=== PATIENT | male | born 1955 | race Caucasian/White ===

== ENCOUNTER 2024-03-06 04:59 | Emergency (ER) | payer OTHER, MEDICAID, SELFPAY ==
[2024-03-06 05:00] VITALS: BMI 30.8
[2024-03-06 05:06] VITALS: BP 162/84; PULSE 69; RESP 19; TEMP 35.9; O2SAT 98
--- NOTE | 2024-03-06 05:17 | PD.EDRME ---
Rapid Medical Screening Exam REPLACED BY [facility] Arrival date/time: 03/06/24 04:59 68M with history of HTN presents to ED with 2 weeks of worsening urinary retention and generalized weakness. Chief Complaint: Urogenital-Male Vital signs: Vital Signs Temperature 96.7 F L 03/06/24 05:06 Pulse Rate 69 03/06/24 05:06 Respiratory Rate 19 03/06/24 05:06 Blood Pressure 162/84 H 03/06/24 05:06 Pulse Oximetry (%) 98 03/06/24 05:06 Oxygen Delivery Method Room Air 03/06/24 05:06
[2024-03-06 06:21] LABS: Collection Type, Urine Catheter; Squamous Epithelial Cell,Urine 0 /hpf (0-5)
[2024-03-06 06:29] LABS: Basophils % (Auto) 0 % (0-2.5); Eosinophils # (Auto) 0.1 Thou/mm3 (0.0-0.5); Eosinophils % (Auto) 1 % (0-10); Hematocrit 42.9 % (41.0-53.0); Hemoglobin 14.7 g/dL (13.5-16.0); Immature Granulocytes % (Auto) 0 % (0-0); Immature Granulocytes Auto 0.02 Thou/mm3 (0.00-0.00); Lymphocytes % (Auto) 24 % (10-50); Mean Corpuscular HGB Conc 34.3 g/dl (31.0-37.0); Mean Corpuscular Hemoglobin 32.9 pg (25.0-35.0); Mean Corpuscular Volume 96 fL (80-100); Monocytes # (Auto) 0.7 Thou/mm3 (0.0-0.8); Monocytes % (Auto) 8 % (0-12); Neutrophils # (Auto) 5.6 Thou/mm3 (1.8-7.7); Neutrophils % (Auto) 67 % (37-80); Nucleated Red Blood Cell % 0 /100 WBC (0); Platelet Count 187 Thou/mm3 (140-440); RDW Standard Deviation 47.8 fL (35.1-43.9); Red Blood Count 4.47 Miln/mm3 (4.50-5.90); White Blood Count 8.4 Thou/mm3 (3.8-10.6)
[2024-03-06 06:46] LABS: Alanine Aminotransferase 38 U/L (10-49); Albumin, Serum 4.9 gm/dL (3.4-4.8); Albumin/Globulin Ratio 1.8 (1.2-2.2); Alkaline Phosphatase 80 U/L (46-116); Anion Gap 8 (7-16); Aspartate Amino Transferase 22 U/L (0-34); BUN/Creatinine Ratio 19 Ratio (12-20); Bilirubin,Total 0.8 mg/dL (0.3-1.2); Blood Urea Nitrogen 19 mg/dL (9-23); Calcium 10.4 mg/dL (8.3-10.6); Calcium (Corrected) 10.4 mg/dL (8.5-10.1); Chloride 100 mMol/L (98-107); Estimated Creatinine Clearance 85.1 mL/min (>60); Globulin 2.8 gm/dL (2.3-3.5); Glucose 128 mg/dL (74-106); Osmolality,Calculated 283 (275-295); Potassium 3.5 mMol/L (3.4-5.1); Sodium 140 mMol/L (136-145); Total Protein 7.7 gm/dL (5.7-8.2); eGFR > 60 See Note
[2024-03-06 07:18] LABS: Bilirubin,Urine Negative (Negative); Blood,Urine Trace (Negative); Clarity,Urine Clear (Clear/Hazy); Color,Urine Yellow (Lt Yel-Yel); Culture Indicated,Urine Not Indicated; Glucose, Urine Negative (Negative); Hyaline Casts,Urine < 1 /hpf (0-1); Ketones,Urine Trace (Negative); Leukocyte Esterase,Urine Negative (Negative); Nitrite,Urine Negative (Negative); Protein,Urine 1+ (Neg - Trace); RBC,Urine 4 /hpf (0-3); Specific Gravity,Urine 1.036 (1.001-1.035); WBC,Urine 5 /hpf (0-5)
--- NOTE | 2024-03-06 07:22 | PD.EDABDPN ---
ED Abdominal Pain RME/HPI General Chief Complaint: Urogenital-Male Stated complaint: ABD PAIN, CAN'T URINATE Time seen by provider: 03/06/24 06:45 Arrival date/time: 03/06/24 0600 This is a 68-year-old male who presents to the emergency department with complaints of a 2-week history of intermittent abdominal pain, constipation, and now with difficulty urinating. He reports he is able to pass urine however is less then his normal. Endorses decreased appetite associated with nausea however no emesis. was previously evaluated by his PCP on Thursday and x-ray was ordered abdominal has not followed up on results. He does report he is lost approximately 35 pounds in the last 6 months. Denies chest pain, dyspnea no fever, cough, shortness of breath, hematochezia, melena, focal weakness, or falls. Source: patient RME / HPI RME / HPI narrative: 03/06/24 04:59 68M with history of HTN presents to ED with 2 weeks of worsening urinary retention and generalized weakness. Related Data Home Medications ?Medication ?Instructions ?Recorded ?Confirmed lisinopril 20 mg tablet 20 mg PO QDAY 12/24/22 12/25/22 Allergies Allergy/AdvReac Type Severity Reaction Status Date / Time No Known Allergies Allergy Verified 12/25/22 11:26 Review of Systems Review of Systems Systems Reviewed: All systems reviewed, normal except as documented Narrative Review of Systems: see hpi ED Exam Narrative Physical exam: General: 68y M Sittiing in Exam table in no acute distress, answering questions appropriately HENT: normocephalic, atraumatic, EOMI, PERRLA, moist mucous membranes Chest: chest wall is nontender Cardiac: regular rate and rhythm, normal S1 and S2, no murmurs, rubs, or gallops, capillary refill ?2 seconds Pulmonary: clear to auscultation bilaterally, no wheezing, crackles, or rhonchi Abdominal: Abdomen is large habitus, left lower quadrant tenderness. Active bowel sounds, soft. Neuro: A&OX3, CN II-XII intact, sensation grossly intact bilaterally in UE and LE. Skin: no rashes, no ecchymosis Ext: no lower extremity edema Course Quality Measures none Orders Category Date Time Status CT Screening NOW Care 03/06/24 07:22 Completed [place] to Leg Bag Routine Care 03/06/24 05:[address] abdomen pelvis w con Stat Exams 03/06/24 07:21 Completed CBC Stat Lab 03/06/24 06:12 Completed CMP [Comprehensive Metabolic Panel] Stat Lab 03/06/24 06:12 Completed Lipase Stat Lab 03/06/24 06:12 Completed PSA [Prostate Specific Antigen] Stat Lab 03/06/24 06:12 Completed Urinalysis, C/S if Indicated Stat Lab 03/06/24 06:14 Completed Vital Signs Vital signs: Vital Signs Temperature 96.7 F L 03/06/24 05:06 Pulse Rate 69 03/06/24 05:06 Respiratory Rate 19 03/06/24 05:06 Blood Pressure 162/84 H 03/06/24 05:06 Pulse Oximetry (%) 98 03/06/24 05:06 Oxygen Delivery Method Room Air 03/06/24 05:06 Abdominal Pain MDM MDM Narrative MDM Narrative:: Mr Storm 68y M who presented to the emergency department this morning with complaints of intermittent anorexia, abdominal pain worsening over 1 month. Presented today with complaints of abdominal pain distention and difficulty urinating. Endorsed to me that he feels there is something abnormal in his abdomen, something is just not right . Due to his history of unintentional 35 pound weight loss, I did go ahead and ordered a CT abdomen pelvis with contrast. Patient's labs reviewed no leukocytosis no anemia. CMP reassuring, no elevation of the LFTs or T. bili. Patient CT did demonstrate a possible mass, or hypodense mass to the pancreas. During the ED stay patient is stable and alteration in vitals no significant pain. Patient is urinating fine. At this time I did explain to the patient all findings. I believe patient can follow-up on an outpatient basis. He states he will call tomorrow to make an appointment with his PCP he has an appointment on , however will try to get in by Thursday. Patient data External records reviewed:: [facility] previous records Clinical information provided by:: patient Social determinants that could affect healthcare access:: none Patient has the following chronic illnesses:: Hypertension How is presenting disease/condition affected by chronic disease/condition?: uneffected by Evaluation data The following diagnostics were reviewed and interpreted by me:: lab results and radiology exam(s) Lab and/or radiology exams considered but not ordered:: Yes consider ordered Interpretation Summary: Examination: CT abdomen with intravenous contrast CT pelvis with intravenous contrast 2-D coronal reconstructions 2-D sagittal reconstructions Date and time of exam:March 06, 2024 at 0907 hrs. Comparison: October 06, 2008 Indications: Bilateral flank pain difficulty urinating beginning 2 weeks ago. CTDI: vol (mGy) 11.2 DLP: (mGycm) 694 Technique: Multiple axial sections of the abdomen and pelvis have been obtained. 64 slice high-resolution scanner used. 3 mm axial sections have been obtained, post intravenous injection 60 cc [id number] 2-D sagittal, coronal reconstructions obtained. Low dose protocols were performed. One or more of the following dose reduction techniques were used; automated exposure control, adjustment of the mA and/or KV according to patient size, use of iterative reconstruction technique. Findings: Small low-density liver lesions Contracted gallbladder Spleen is not enlarged A hypodense mass with irregular margins head of the pancreas, measuring at least 5.8 x 6.2 cm No pancreatic mass No hydronephrosis No ureteral calculi Abdominal aortic calcification no aneurysmal dilatation No pericecal inflammatory change No bowel obstruction Detail in the pelvis is obscured by the hip arthroplasties Moderate osteopenia Impression: Large hypodense mass head of the pancreas with irregular margins, measuring at least 5.8 x 6.2 cm, highest on the differential list is pancreatic carcinoma Recommend MRI abdomen follow-up pre and postcontrast including MRCP Medications / Prescriptions Medications or Prescriptions considered but not ordered:: no Medication administrations:: no Consultations Consultation(s) initiated? (list below): No Diagnosis Differential diagnosis abdominal pain: abdominal pain, constipation, diverticulitis, gastroenteritis, pancreatitis and small bowel obstruction Most likely diagnosis given after review of the tests above:: Pancreatic Mass Admission Indicated Admission indicated?: not indicated Admission Request Was there a request for admission?: No Disposition Plan Disposition Plan: Discharge Discharge Attestation Discharge Attestation: The patient and all family members were given an opportunity to ask questions and understood the discharge instructions. Discharge instructions specifically effects, indications for sooner follow up or return to the emergency department, and the expected course of current diagnosis. Patient condition: Stable Discharge Plan Plan Patient Disposition: HOME (Self Care) Patient condition on transfer: Stable Prescriptions/Referrals Prescriptions/Med Rec: No Action lisinopril 20 mg tablet 20 mg PO QDAY Patient Comments: TAKE 1 TABLET BY MOUTH EVERY DAY [facility] [Primary Care Provider] - In 1 week Problem List Clinical Impression: Unintentional weight loss, Intermittent abdominal pain, Pancreatic mass Patient/Caregiver Discharge Instructions Discharge Activity: activity as tolerated Education Materials: Abdominal Pain Additional Instructions: - As discussed the findings of your CAT scan does does demonstrate you have a mass on your pancreas. It is very important that you make a follow-up appointment with your PCP or clinic this week for follow-up care. Will need extensive workup to follow. -As discussed please if you have any changes in condition, please return to the emergency department immediately. I did send some antiemetic medication to the pharmacy that might help with your nausea Print Language: Chinese Stand Alone Forms: Brenda Award Info., Patient Portal Info Letter Attestation Attestation The patient was seen by the midlevel practitioner. I, the co-signing physician, was present during the entire ER visit. While I did not physically examine the patient, I was available for consultation as needed.
[2024-03-06 07:43] LABS: Lipase 26 U/L (12-53)
[2024-03-06 07:45] LABS: Prostate Specific Antigen 0.75 ng/mL (0-4.00)
--- NOTE | 2024-03-06 07:57 | PC.NURSE ---
per herbert no catheter needed
== END 2024-03-06 11:22 | disposition home or self-care (01) ==
PROVIDERS: Nurse Practitioner Primary Care; Physician Assistant; Emergency Provider Emergency Medicine; PCP Nurse Practitioner Family
DX: K86.89 Other specified diseases of pancreas (principal); R63.4 Abnormal weight loss; Z68.30 Body mass index [BMI] 30.0-30.9, adult
CPT/HCPCS: 36415; 74177; 80053; 81001; 83690; 84153; 85025; 99285; A4649; Q9967

== ENCOUNTER 2024-03-18 06:07 | Emergency (ER) | payer OTHER, MEDICAID, SELFPAY ==
[2024-03-18 06:08] VITALS: BMI 24.3
[2024-03-18 06:20] VITALS: BP 146/86; PULSE 77; RESP 19; TEMP 36.4; O2SAT 100
--- NOTE | 2024-03-18 06:33 | PD.EDRME ---
Rapid Medical Screening Exam RME Arrival date/time: 03/18/24 06:07 Chief Complaint: Abdominal Pain Time Seen by Provider: 03/18/24 06:16 Vital signs: Vital Signs Temperature 97.6 F 03/18/24 06:20 Pulse Rate 77 03/18/24 06:20 Respiratory Rate 19 03/18/24 06:20 Blood Pressure 146/86 H 03/18/24 06:20 Pulse Oximetry (%) 100 03/18/24 06:20 Oxygen Delivery Method Room Air 03/18/24 06:20 Vital signs reviewed by provider: Yes RME Narrative: 68-year-old male with known intra-abdominal mass presents for diffuse abdominal pain x 1 month. Patient is currently being worked up for pancreatic mass seen on CT x 2 weeks ago but states he was unable to be scheduled with a specialist due to the holiday. Patient endorses abdominal distention and diffuse sharp pain. Patient notes increased urinary frequency and retention with mild abdominal distention. Patient endorses anorexia secondary to pain and nausea.
[2024-03-18 06:58] LABS: Collection Type, Urine Clean Catch; Squamous Epithelial Cell,Urine 0 /hpf (0-5)
[2024-03-18 07:20] LABS: Basophils % (Auto) 0 % (0-2.5); Eosinophils # (Auto) 0.1 Thou/mm3 (0.0-0.5); Eosinophils % (Auto) 1 % (0-10); Hemoglobin 15.6 g/dL (13.5-16.0); Immature Granulocytes % (Auto) 0 % (0-0); Immature Granulocytes Auto 0.03 Thou/mm3 (0.00-0.00); Lymphocytes # (Auto) 2.4 Thou/mm3 (1.0-4.8); Lymphocytes % (Auto) 26 % (10-50); Mean Corpuscular HGB Conc 35.5 g/dl (31.0-37.0); Mean Corpuscular Hemoglobin 32.8 pg (25.0-35.0); Mean Corpuscular Volume 92 fL (80-100); Monocytes # (Auto) 0.7 Thou/mm3 (0.0-0.8); Monocytes % (Auto) 8 % (0-12); Neutrophils # (Auto) 5.8 Thou/mm3 (1.8-7.7); Neutrophils % (Auto) 65 % (37-80); Nucleated Red Blood Cell % 0 /100 WBC (0); Platelet Count 182 Thou/mm3 (140-440); RDW Standard Deviation 45.7 fL (35.1-43.9); Red Blood Count 4.76 Miln/mm3 (4.50-5.90)
[2024-03-18] MEDS: MORPHINE SULF INJ 10 MG/ML VIAL 5 MG IM (07:35)
[2024-03-18] MEDS: ONDANSETRON ODT 4 MG TABRAP PO (07:35)
[2024-03-18 07:41] LABS: Alanine Aminotransferase 41 U/L (10-49); Albumin, Serum 4.7 gm/dL (3.4-4.8); Albumin/Globulin Ratio 1.6 (1.2-2.2); Alkaline Phosphatase 80 U/L (46-116); Anion Gap 10 (7-16); Aspartate Amino Transferase 25 U/L (0-34); BUN/Creatinine Ratio 22 Ratio (12-20); Bilirubin,Total 0.9 mg/dL (0.3-1.2); Blood Urea Nitrogen 22 mg/dL (9-23); Calcium 10.8 mg/dL (8.3-10.6); Calcium (Corrected) 10.8 mg/dL (8.5-10.1); Carbon Dioxide 29.3 mMol/L (20.0-31.0); Chloride 96 mMol/L (98-107); Glucose 132 mg/dL (74-106); Lipase 32 U/L (12-53); Osmolality,Calculated 275 (275-295); Potassium 2.8 mMol/L (3.4-5.1); Sodium 135 mMol/L (136-145); Total Protein 7.7 gm/dL (5.7-8.2); eGFR > 60 See Note
[2024-03-18 07:42] LABS: Amorphous Crystals,Urine Present (Absent); Amphetamine/Methamp Scrn,U Negative (Negative); Bacteria,Urine Rare; Barbiturate Screen,Urine Negative (Negative); Benzodiazepines Screen,Urine Negative (Negative); Benzoylecgonine Screen, Ur Negative (Negative); Bilirubin,Urine 1+ (Negative); Blood,Urine 1+ (Negative); Clarity,Urine Turbid (Clear/Hazy); Color,Urine Yellow (Lt Yel-Yel); Fentanyl Screen,Urine Negative (Negative); Glucose, Urine Negative (Negative); Hyaline Casts,Urine < 1 /hpf (0-1); Ketones,Urine 1+ (Negative); Leukocyte Esterase,Urine Positive (Negative); Nitrite,Urine Negative (Negative); Opiate Screen,Urine Positive (Negative); Protein,Urine 2+ (Neg - Trace); RBC,Urine 12 /hpf (0-3); Specific Gravity,Urine 1.041 (1.001-1.035); THC Screen,Urine Negative (Negative); WBC,Urine 5 /hpf (0-5)
--- NOTE | 2024-03-18 08:33 | PD.EDABDPN ---
ED Abdominal Pain RME/HPI General Chief Complaint: Abdominal Pain Stated complaint: ABD PAIN DUE TO HAVING MASS Time seen by provider: 03/18/24 06:16 Arrival date/time: 03/18/24 06:07 Limitations: no limitations RME / HPI RME / HPI narrative: 68-year-old male with known intra-abdominal mass presents for diffuse abdominal pain x 1 month. Patient is currently being worked up for pancreatic mass seen on CT x 2 weeks ago but states he was unable to be scheduled with a specialist due to the holiday. Patient endorses abdominal distention and diffuse sharp pain. Patient notes increased urinary frequency and retention with mild abdominal distention. Patient endorses anorexia secondary to pain and nausea. DR. LI MAIN ED EVALUATION: 68 year old male who was recently evaluated here 2 weeks ago and diagnosed with a pancreatic and liver mass and currently being worked up presents to the ED for complaint of abdominal pain and requesting pain medications today. States the pain remains unchanged from onset 1 month ago and described as sharp in sensation with abdominal distention. Accompanied by decreased appetite and nausea. Says he is planning to make a [address] [facility] for further evaluation/treatment today. Denies fevers, chills, chest pain, cough, shortness of breath, diarrhea, or urinary symptoms. Related Data Home Medications ?Medication ?Instructions ?Recorded ?Confirmed lisinopril 20 mg tablet 20 mg PO QDAY 12/24/22 12/25/22 Allergies Allergy/AdvReac Type Severity Reaction Status Date / Time No Known Allergies Allergy Verified 12/25/22 11:26 Review of Systems Review of Systems Systems Reviewed: All systems reviewed, normal except as documented Past Medical History Past Medical History CARDIAC: Positive Cardiac Disorders (htn) and Hypertension RESPIRATORY: Positive Asthma MUSCULOSKELETAL: Positive Musculoskeletal Disorders, Arthritis and Osteoporosis OTHER HISTORY: Positive Chicken Pox, Measles and Mumps Social History SMOKING STATUS: Never smoker ED Exam General Limitations: Present no limitations General appearance: Present alert and in distress (mild ) Head Head exam: Present atraumatic, normocephalic and normal inspection Eye Eye exam: Present normal appearance, PERRL and EOMI ENT ENT exam: Present normal exam, normal oropharynx and mucous membranes moist Neck Neck exam: Present normal inspection, full ROM and trachea midline Chest Chest inspection: Present normal inspection and symmetric chest wall rise Respiratory Respiratory exam: Present normal lung sounds bilaterally Cardiovascular Cardiovascular exam: Present regular rate, normal rhythm and normal heart sounds Abdominal Exam Abdominal exam: Present soft, distention and hyperactive bowel sounds Extremities Exam Extremities exam: Present normal inspection and full ROM Back Exam Back exam: Present normal inspection and full ROM Neurological Exam Neurological exam: Present alert, oriented X3 and CN II-XII intact Psychiatric Psychiatric exam: Present normal affect and normal mood Skin Skin exam: Present warm, dry, intact and normal color Course Quality Measures none Orders Category Date Time Status CBC Stat Lab 03/18/24 07:05 Completed CMP [Comprehensive Metabolic Panel] Stat Lab 03/18/24 07:05 Completed Drug Screen,Urine Stat Lab 03/18/24 06:47 Completed Lipase Stat Lab 03/18/24 07:05 Completed UA [Urinalysis] Stat Lab 03/18/24 06:47 Completed HYDROmorphone INJ [Dilaudid Inj] Med 03/18/24 08:30 Discontinued 2 mg IM X1 ONE Morphine Inj Med 03/18/24 06:32 Discontinued 5 mg IM X1 ONE Ondansetron Odt [Zofran Odt] Med 03/18/24 06:32 Discontinued 4 mg PO X1 ONE Reevaluation(s) Reevaluation #1: We reviewed all the results, analysis, and treatment plans. Patient is amenable to discharge. Strict return precautions were outlined. Patient was discharged in stable condition. Time: 08:30 Vital Signs Vital signs: Vital Signs Temperature 97.6 F 03/18/24 06:20 Pulse Rate 77 03/18/24 06:20 Respiratory Rate 19 03/18/24 06:20 Blood Pressure 146/86 H 03/18/24 06:20 Pulse Oximetry (%) 100 03/18/24 06:20 Oxygen Delivery Method Room Air 03/18/24 06:20 Pulse ox is 100% on room air which is adequate. Abdominal Pain MDM MDM Narrative MDM Narrative:: Carolyn Dye am scribing for and in the presence of Dr. Li. Patient data External records reviewed:: [facility] previous records (I reviewed ED visit on 03/06/2024 ) Clinical information provided by:: patient Social determinants that could affect healthcare access:: none Patient has the following chronic illnesses:: Hypertension Here 2 weeks ago and diagnosed with a pancreatic and liver mass How is presenting disease/condition affected by chronic disease/condition?: exacerbated by Evaluation data The following diagnostics were reviewed and interpreted by me:: lab results Lab and/or radiology exams considered but not ordered:: None Interpretation Summary: CBC unremarkable Medications / Prescriptions Medications or Prescriptions considered but not ordered:: None Medication administrations:: Medication Administration History Discontinued Medications Hydromorphone HCl (Hydromorphone Inj 2 Mg/Ml Vial) 2 mg IM X1 ONE Stop: 03/18/24 08:31 Last Admin: 03/18/24 08:42 Dose: 2 mg Documented By: DELMA Morphine Sulfate (Morphine Sulf Inj 10 Mg/Ml Vial) 5 mg IM X1 ONE Stop: 03/18/24 06:33 Last Admin: 03/18/24 07:35 Dose: 5 mg Documented By: DELMA Ondansetron HCl (Ondansetron Odt 4 Mg Tabrap) 4 mg PO X1 ONE; Protocol Stop: 03/18/24 06:33 Last Admin: 03/18/24 07:35 Dose: 4 mg Documented By: DELMA See above Consultations Consultation(s) initiated? (list below): No Diagnosis Differential diagnosis abdominal pain: abdominal pain and other (pancreatic mass, liver mass) Most likely diagnosis given after review of the tests above:: Abdominal pain Admission Indicated Admission indicated?: not indicated Admission Request Was there a request for admission?: No Disposition Plan Disposition Plan: Discharge Discharge Attestation Discharge Attestation: The patient and all family members were given an opportunity to ask questions and understood the discharge instructions. Discharge instructions specifically effects, indications for sooner follow up or return to the emergency department, and the expected course of current diagnosis. Patient condition: Stable Discharge Plan Plan Patient Disposition: HOME (Self Care) Patient condition on transfer: Stable Prescriptions/Referrals Prescriptions/Med Rec: No Action lisinopril 20 mg tablet 20 mg PO QDAY Patient Comments: TAKE 1 TABLET BY MOUTH EVERY DAY Referrals: Tete Gallardo MD [Primary Care Provider] - In 1 week Problem List Clinical Impression: Abdominal pain Patient/Caregiver Discharge Instructions Print Language: Chinese Stand Alone Forms: Brenda Award Info., Patient Portal Info Letter
[2024-03-18] MEDS: HYDROmorphone INJ 2 MG/ML VIAL IM (08:42)
== END 2024-03-18 08:49 | disposition home or self-care (01) ==
PROVIDERS: Physician Assistant; Emergency Provider Emergency Medicine; PCP Family Medicine
DX: R10.84 Generalized abdominal pain (principal)
CPT/HCPCS: 36415; 80053; 80307; 81001; 83690; 85025; 96372; 99284; J2270; J3490; Q0162

== ENCOUNTER 2024-03-30 19:45 | Inpatient (IN) | payer OTHER, MEDICAID, MEDICARE, SELFPAY ==
[2024-03-30 19:51] VITALS: PULSE 99; RESP 18; O2SAT 97; BMI 28.7
[2024-03-30 19:52] VITALS: BP 159/93; PULSE 89; RESP 19; TEMP 36.6; O2SAT 99; BMI 28.4
--- NOTE | 2024-03-30 19:53 | EKG_ITS ---
[facility] Test Date: 2024-03-30 Pat Name: HUSAM SANCHEZ Department: Room: - Gender: Male Vp Strategy: : 1955 Requested By: ED Temporary Provider Order Number: [id number] Reading MD: ED Temporary Provider Measurements Intervals [place] Rate: 86 P: 70 [place]: 143 QRS: 33 QRSD: 86 T: 60 QT: 374 QTc: 449 Interpretive Statements SINUS RHYTHM WITH SINUS ARRHYTHMIA POSSIBLE RIGHT VENTRICULAR CONDUCTION DELAY [RSR (QR) IN V1/V2] No previous ECG available for comparison /[id number]/[email or web address]/[id number].pdf
--- NOTE | 2024-03-30 19:59 | XR_ITS ---
Examination: AP chest single view Technique one AP portable semiupright chest single view Exam date and time: March 30, 2024 2042 hrs. Comparison: April 10, 2016 Indications: Onset chest pain today. Findings: Normal heart size Lungs are clear. The osseous structures are intact Impression: No active disease
--- NOTE | 2024-03-30 20:10 | EDNOTE_ITS ---
ED Chest Pain RME/HPI General Chief Complaint: Chest Pain Stated Complaint: CHEST PAIN Time Seen by Provider: 03/30/24 19:59 Arrival date/time: 03/30/24 19:45 RME / HPI RME / HPI narrative: DR. VELEZ MAIN ED EVALUATION: 68 year old male presents to the Emergency Department [facility] with complaints of chest pain and diffuse abdominal pain. Pain is described as aching and rated mild to moderate in severity. PMHx: Hypertension. Seen here on 03/06/24 and diagnosed with a pancreatic and liver mass. Social Hx: No tobacco, alcohol, or substance use. Related Data Previous Rx's ?Medication ?Instructions ?Recorded morphine 20 mg/5 mL (4 mg/mL) oral 10 mg (2.5 mL) PO Q4H PRN severe 04/04/24 solution pain #500 mL Allergies Allergy/AdvReac Type Severity Reaction Status Date / Time No Known Allergies Allergy Verified 12/25/22 11:26 Review of Systems Review of Systems Systems Reviewed: All systems reviewed, normal except as documented Past Medical History Past Medical History CARDIAC: Positive Cardiac Disorders and Hypertension RESPIRATORY: Positive Asthma MUSCULOSKELETAL: Positive Musculoskeletal Disorders, Arthritis and Osteoporosis OTHER HISTORY: Positive Chicken Pox, Measles and Mumps Social History SMOKING STATUS: Former smoker SUBSTANCE USE: does not use ALCOHOL: Never ED Exam Narrative Physical exam: GENERAL APPEARANCE: alert and oriented x 4, well-developed, well-nourished, no acute distress VITALS: All vitals were reviewed and the pulse ox is 99% on room air, which is normal according to my interpretation. HEENT: Normocephalic, atraumatic; pupils equal, round, reactive to light; EOMI; mucous membranes pink, moist; oropharynx clear NECK: Supple LUNGS: CTABL; no wheezes, no rales, no rhonchi HEART: Regular rate, regular rhythm; normal S1, S2; no murmurs ABDOMEN: non distended; normal BS; soft, no tenderness, no guarding, no rebound; no masses, no organomegaly, no hernia BACK: no CVA tenderness EXTREMITIES: atraumatic; no edema NEUROLOGIC: awake; alert and oriented x4; cranial nerves II-XII grossly intact; no focal sensory or motor deficits PSYCHIATRIC: appropriate mood and affect SKIN: warm, dry, normal color; no rashes Course Course Course Narrative: 2210: Spoke with the patient, who states he had a biopsy done on Thursday (03/25/24) at [facility] and was supposed to have the pathology results sent over to [facility]. Patient states he doesn't have an appointment with [facility] until 04/25/23 and has not been informed of the pathology results. His new oncologist, Dr. Bach, is currently on vacation. 0020: Patient states his pain has returned and woke him up from his sleep. He is requesting additional pain medications. Quality Measures none Orders Category Date Time Status Mine Safety Director NOW Care 03/30/24 19:59 Completed EKG (ED ONLY) *Do not use* NOW Care 03/30/24 19:53 Completed EKG (ED Only) Stat Exams 03/30/24 19:53 Draft XR chest 1V portable Stat Exams 03/30/24 19:59 Completed B-Type Natriuretic Peptide Stat Lab 03/30/24 20:06 Completed CBC Stat Lab 03/30/24 20:06 Completed Comprehensive Metabolic Panel Stat Lab 03/30/24 20:06 Completed Lipase Stat Lab 03/30/24 20:06 Completed Magnesium Stat Lab 03/30/24 20:06 Completed Partial Thromboplastin Time Stat Lab 03/30/24 20:06 Completed Prothrombin Time with INR Stat Lab 03/30/24 20:06 Completed Troponin I Stat Lab 03/30/24 20:06 Completed Urinalysis, C/S if Indicated Stat Lab 03/30/24 21:50 Completed HYDROmorphone INJ [Dilaudid Inj] Med 03/30/24 21:50 Discontinued 1 mg IVP X1 ONE HYDROmorphone INJ [Dilaudid Inj] Med 03/31/24 00:24 Discontinued 1 mg IVP X1 ONE Morphine Inj Med 03/30/24 20:22 Discontinued 5 mg IVP X1 ONE Ondansetron Inj [Zofran Inj] Med 03/30/24 20:22 Discontinued 4 mg IV X1 ONE Ondansetron Inj [Zofran Inj] Med 03/31/24 00:24 Discontinued 4 mg IV X1 ONE Sodium Chloride 0.9% 1000 ml [Ns] 1,000 ml Med 03/30/24 20:22 Discontinued IV 999 mls/hr Sodium Chloride 0.9% 1000 ml [Ns] 1,000 ml Med 03/30/24 20:22 Discontinued IV 999 mls/hr Vital Signs Vital signs: Vital Signs Temperature 97.8 F 03/30/24 19:52 Pulse Rate 89 03/30/24 19:52 Respiratory Rate 19 03/30/24 19:52 Blood Pressure 159/93 H 03/30/24 19:52 Pulse Oximetry (%) 99 03/30/24 19:52 Oxygen Delivery Method Room Air 03/30/24 19:52 Chest Pain MDM Narrative MDM Narrative:: I, Marlene Prado, dulce scribing for and in the presence of Dr. Velez. Patient data External records reviewed:: [facility] previous records (Reviewed last ED visit dated 03/18/24, discharged with the following: abdominal pain.) and EMS form Clinical information provided by:: patient and EMS Social determinants that could affect healthcare access:: none Patient has the following chronic illnesses:: Hypertension. Seen here on 03/06/24 and diagnosed with a pancreatic and liver mass. How is presenting disease/condition affected by chronic disease/condition?: exacerbated by Evaluation data The following diagnostics were reviewed and interpreted by me:: lab results, radiology exam(s) and EKG tracing(s) Lab and/or radiology exams considered but not ordered:: none Interpretation Summary: Procedure(s): XR chest 1V portable Accession Number(s): [id number] cc: Ronal Arguello MD; Ifrah Velez MD; Tete Gallardo MD~ Examination: AP chest single view Technique one AP portable semiupright chest single view Exam date and time: March 30, 2024 2042 hrs. Comparison: April 10, 2016 Indications: Onset chest pain today. Findings: Normal heart size Lungs are clear. The osseous structures are intact Impression: No active disease Dictated By: Ronal Arguello MD --------- EKG done at 2003, NSR, rate of 86, mild baseline wander, mild artifact, no acute ischemia, according to my interpretation. Medications / Prescriptions Medications or Prescriptions considered but not ordered:: none Medication administrations:: Medication Administration History Discontinued Medications Bisacodyl (Bisacodyl 10 Mg Supp) 10 mg RI QDAY PRN; Protocol PRN Reason: CONSTIPATION Stop: 04/30/24 14:14 Dronabinol (Dronabinol 2.5 Mg Capsule) 2.5 mg PO BIDAC NIKKO Stop: 04/30/24 16:59 Last Admin: 04/01/24 07:46 Dose: 2.5 mg Documented By: Admin: 03/31/24 17:47 Dose: 2.5 mg Documented By: TD Enoxaparin Sodium (Enoxaparin Sod Inj 40 Mg/0.4 Ml Syringe) 40 mg SC QDAY NIKKO Stop: 04/14/24 08:59 Last Admin: 04/01/24 08:37 Dose: 40 mg Documented By: Admin: 03/31/24 09:08 Dose: 40 mg Documented By: LIAT Glycerin (Glycerin, Adult 1 Ea Supp) 1 each RI QDAY PRN; Protocol PRN Reason: CONSTIPATION Stop: 04/30/24 14:09 Hydromorphone HCl (Hydromorphone Inj 2 Mg/Ml Vial) 1 mg IVP X1 ONE Stop: 03/30/24 21:51 Last Admin: 03/30/24 21:54 Dose: 1 mg Documented By: JLUIS Hydromorphone HCl (Hydromorphone Inj 2 Mg/Ml Vial) 1 mg IVP X1 ONE Stop: 03/31/24 00:25 Last Admin: 03/31/24 00:45 Dose: 1 mg Documented By: JLUIS Hydromorphone HCl (Hydromorphone Inj 2 Mg/Ml Vial) 1 mg IVP Q2H PRN PRN Reason: PAIN Stop: 04/05/24 00:43 Last Admin: 03/31/24 10:55 Dose: 1 mg Documented By: Admin: 03/31/24 08:51 Dose: 1 mg Documented By: Admin: 03/31/24 06:39 Dose: 1 mg Documented By: Admin: 03/31/24 03:47 Dose: 1 mg Documented By: JLUIS Comments: MEDICATION GIVEN VERIFIED WITH CHARGE NURSE LALA GAFFNEY. Hydromorphone HCl (Hydromorphone Inj 2 Mg/Ml Vial) 2 mg IVP Q2H PRN PRN Reason: PAIN Stop: 04/05/24 00:43 Sodium Chloride (Ns) 1,000 mls @ 999 mls/hr IV .Q1H1M ONE Stop: 03/30/24 21:22 Last Infusion: 03/30/24 21:46 Dose: Infused Documented By: Admin: 03/30/24 20:37 Dose: 999 mls/hr Documented By: JLUIS Sodium Chloride (Ns) 1,000 mls @ 999 mls/hr IV .Q1H1M ONE Stop: 03/30/24 21:22 Last Infusion: 03/30/24 21:46 Dose: Infused Documented By: Admin: 03/30/24 20:37 Dose: 999 mls/hr Documented By: JLUIS Sodium Chloride (Ns) 1,000 mls @ 100 mls/hr IV .Q10H ONE Stop: 03/31/24 10:44 Last Admin: 03/31/24 01:10 Dose: 100 mls/hr Documented By: JLUIS Lisinopril (Lisinopril 20 Mg Tablet) 20 mg PO QDAY [facility] Stop: 04/30/24 08:59 Last Admin: 04/01/24 08:37 Dose: 20 mg Documented By: Admin: 03/31/24 09:07 Dose: 20 mg Documented By: TD Magnesium Hydroxide (Milk Of Magnesia Susp 30 Ml Udc) 30 ml PO Q12HR PRN; Protocol PRN Reason: CONSTIPATION Stop: 04/30/24 14:09 Morphine Sulfate (Morphine Sulf Inj 10 Mg/Ml Vial) 5 mg IVP X1 ONE Stop: 03/30/24 20:23 Last Admin: 03/30/24 20:36 Dose: 5 mg Documented By: JLUIS Morphine Sulfate (Morphine Sulf 30 Mg Tabcr) 30 mg PO Q12HR NIKKO Stop: 04/04/24 21:01 Last Admin: 04/01/24 08:37 Dose: 30 mg Documented By: Admin: 03/31/24 21:19 Dose: 30 mg Documented By: Admin: 03/31/24 14:30 Dose: 30 mg Documented By: TD Morphine Sulfate (Morphine Sulf Liqd 10 Mg/5 Ml Udc) 10 mg PO Q4H PRN PRN Reason: PAIN Stop: 04/05/24 14:00 Last Admin: 04/01/24 09:36 Dose: 10 mg Documented By: LÓPEZ Naloxegol (Naloxegol Oxalate 25 Mg Tablet (Non-Formulary)) 12.5 mg PO QDAY NIKKO Stop: 04/30/24 08:59 Last Admin: 03/31/24 10:48 Dose: 12.5 mg Documented By: LIAT Naloxegol (Naloxegol Oxalate 25 Mg Tablet (Non-Formulary)) 25 mg PO ACBR [facility] Stop: 05/01/24 05:59 Last Admin: 04/01/24 06:10 Dose: Not Given Documented By: YURI Non-Admin Reason: Patient Refused Ondansetron HCl (Ondansetron Inj 2 Mg/Ml Inj 2 Ml) 4 mg IV X1 ONE Stop: 03/30/24 20:23 Last Admin: 03/30/24 20:36 Dose: 4 mg Documented By: JLUIS Ondansetron HCl (Ondansetron Inj 2 Mg/Ml Inj 2 Ml) 4 mg IV X1 ONE Stop: 03/31/24 00:25 Last Admin: 03/31/24 00:45 Dose: 4 mg Documented By: JLUIS see above Consultations Consultation(s) initiated? (list below): Yes Consultation #1 (Physician, Specialty, Details): Discussed case with [Dr. Smith] from Hospitalist service regarding admission. Discussed patients ED course, exam findings, labs, and radiology results. The Hospitalist will evaluate the patient. Time: 00:25 Consultation #2 (Physician, Specialty, Details): Dr. Smith accepts the patient for admission. Time: 00:43 Diagnosis Chest Pain Differential Diagnosis: atypical chest pain, costochondritis, chest pain, biliary colic and other (pancreatic mass, liver mass) Most likely diagnosis given after review of the tests above:: see below Admission Indicated Admission indicated?: indicated Admission Request Was there a request for admission?: Yes Admission Attestation Admission request attestation: Discussed case with [] from Hospitalist service regarding admission. Discussed patients ED course, exam findings, labs, and radiology results. The Hospitalist [agrees,declines] to accept the patient for admission. Disposition Plan Disposition Plan: Admit Discharge Plan Plan Patient Disposition: Admit Acute Care w/in Hospital Patient condition on transfer: Stable Problem List Clinical Impression: Pancreatic mass, Abdominal pain Patient/Caregiver Discharge Instructions Discharge Activity: activity as tolerated Other Activity Instructions:: [facility] , , at 9:30a.m. with Dr. Lopez [phone] Diet Instructions: Regular diet
[2024-03-30 20:27] LABS: Basophils % (Auto) 0 % (0-2.5); Eosinophils # (Auto) 0.1 Thou/mm3 (0.0-0.5); Eosinophils % (Auto) 1 % (0-10); Hematocrit 37.8 % (41.0-53.0); Hemoglobin 13.2 g/dL (13.5-16.0); Immature Granulocytes % (Auto) 1 % (0-0); Immature Granulocytes Auto 0.13 Thou/mm3 (0.00-0.00); Lymphocytes # (Auto) 1.3 Thou/mm3 (1.0-4.8); Lymphocytes % (Auto) 11 % (10-50); Mean Corpuscular HGB Conc 34.9 g/dl (31.0-37.0); Mean Corpuscular Hemoglobin 32.3 pg (25.0-35.0); Mean Corpuscular Volume 92 fL (80-100); Monocytes # (Auto) 1.2 Thou/mm3 (0.0-0.8); Monocytes % (Auto) 9 % (0-12); Neutrophils # (Auto) 9.7 Thou/mm3 (1.8-7.7); Neutrophils % (Auto) 78 % (37-80); Nucleated Red Blood Cell % 0 /100 WBC (0); Platelet Count 173 Thou/mm3 (140-440); RDW Standard Deviation 45.1 fL (35.1-43.9); Red Blood Count 4.09 Miln/mm3 (4.50-5.90); White Blood Count 12.4 Thou/mm3 (3.8-10.6)
[2024-03-30] MEDS: MORPHINE SULF INJ 10 MG/ML VIAL 5 MG IVP (20:36)
[2024-03-30] MEDS: ONDANSETRON INJ 2 MG/ML INJ 2 ML 4 MG IV (20:36)
[2024-03-30] MEDS: SODIUM CHLORIDE 0.9% 1000 ML 1,000 ML 999 ML IV ×2 (20:37)
[2024-03-30 20:42] LABS: INR 1.3 (0.9-1.3); Partial Thromboplastin Time 29.3 Seconds (22.0-36.0); Prothrombin Time 13.7 Seconds (9.0-12.2)
[2024-03-30 21:00] LABS: Alanine Aminotransferase 71 U/L (10-49); Albumin, Serum 4.1 gm/dL (3.4-4.8); Albumin/Globulin Ratio 1.5 (1.2-2.2); Alkaline Phosphatase 100 U/L (46-116); Anion Gap 16 (7-16); Aspartate Amino Transferase 43 U/L (0-34); BUN/Creatinine Ratio 19 Ratio (12-20); Blood Urea Nitrogen 13 mg/dL (9-23); Calcium 10.1 mg/dL (8.3-10.6); Calcium (Corrected) 10.1 mg/dL (8.5-10.1); Chloride 93 mMol/L (98-107); Creatinine (Component) 0.7 mg/dL (0.6-1.3); Estimated Creatinine Clearance 117.1 mL/min (>60); Globulin 2.8 gm/dL (2.3-3.5); Glucose 126 mg/dL (74-106); Lipase 21 U/L (12-53); Magnesium 1.9 mg/dL (1.6-2.6); Osmolality,Calculated 262 (275-295); Potassium 3.5 mMol/L (3.4-5.1); Sodium 130 mMol/L (136-145); Total Protein 6.9 gm/dL (5.7-8.2); Troponin I < 0.020 ng/mL (0.0-0.045); eGFR > 60 See Note
[2024-03-30 21:03] LABS: B-Type Natriuretic Peptide 28 pg/mL (0-100)
[2024-03-30] MEDS: HYDROmorphone INJ 2 MG/ML VIAL 1 MG IVP (21:54)
[2024-03-30 21:55] VITALS: BP 132/73; PULSE 78; PULSE 80; RESP 18; O2SAT 97
[2024-03-30 21:55] LABS: Collection Type, Urine Clean Catch; Squamous Epithelial Cell,Urine 0 /hpf (0-5); WBC,Urine 0 /hpf (0-5)
[2024-03-30 22:06] LABS: Bacteria,Urine Rare; Bilirubin,Urine Negative (Negative); Blood,Urine Trace (Negative); Clarity,Urine Turbid (Clear/Hazy); Color,Urine Yellow (Lt Yel-Yel); Culture Indicated,Urine Not Indicated; Glucose, Urine Negative (Negative); Ketones,Urine 2+ (Negative); Leukocyte Esterase,Urine Negative (Negative); Nitrite,Urine Negative (Negative); PH,Urine 6.5 (5.0-7.0); Protein,Urine Trace (Neg - Trace); RBC,Urine 5 /hpf (0-3); Specific Gravity,Urine 1.011 (1.001-1.035)
[2024-03-31] VITALS (9 sets, daily range): BP systolic 112–157; BP diastolic 68–91; PULSE 66–105; RESP 15–20; TEMP 36.1–37.6; O2SAT 92–100; BMI 28.1
[2024-03-31] MEDS: HYDROmorphone INJ 2 MG/ML VIAL 1 MG IVP ×5 (00:45→10:55)
[2024-03-31] MEDS: ONDANSETRON INJ 2 MG/ML INJ 2 ML 4 MG IV (00:45)
--- NOTE | 2024-03-31 00:48 | PD.EVENT ---
Documentation for date of: 03/31/24 Event Note Event Note: The patient is a 68-year-old male presenting with severe, diffuse abdominal pain radiating to the lower back, associated with chest discomfort. The abdominal pain, described as aching and persistent, began in January and progressively worsened, leading to multiple evaluations, including a stomach X-ray and CT imaging at outside facilities. On 03/06/24, CT imaging revealed a large hypodense mass in the head of the pancreas with irregular margins, measuring 5.8 x 6.2 cm, suspicious for pancreatic carcinoma. A biopsy was performed on last Thursday at [facility], and the patient awaits pathology results. He reports significant weight loss, absence of appetite for the past month, weakness, dizziness, and minimal vomiting, but denies fever, cough, or diarrhea. He also reports severe constipation requiring enema use. Despite [place] 5/325 every six hours, the pain remains uncontrolled, with a current intensity of 10/10. Prior trials of morphine provided partial relief lasting about four hours. The patient denies any recent surgical history, diabetes, or heart conditions but has a history of hypertension. He quit smoking and drinking several years ago. In the Emergency Department, his vital signs showed a temperature of 97.8?F, blood pressure of 159/93 mmHg, respiratory rate of 19, and oxygen saturation within normal limits. Laboratory workup revealed elevated WBC at 12.4, mild hyponatremia (Na 130), and hypochloremia (Cl 93). Chest X-ray showed no active disease, and physical examination confirmed abdominal tenderness, particularly in the epigastric region, and diffuse pain radiating to the back. Despite administration of morphine and hydromorphone, there was no significant improvement in pain. Patient is going to be admitted for pain management.
[2024-03-31] MEDS: SODIUM CHLORIDE 0.9% 1000 ML 1,000 ML 100 ML IV (01:10)
--- NOTE | 2024-03-31 01:21 | PD.RESHP ---
Documentation for date of: 03/31/24 [facility] History of Present Illness History of present illness: The patient is a 68-year-old male with a past medical history of hypertension and recently diagnosec pancreatic adenocarcinoma who presents to the ED on 03/31/2024 with complaints of chest and abdominal pain of about two month duration. The patient reports that his symptoms started in January with abdominal pain initially located in the epigastric region and progressed to be diffuse and radiating to the back, associated with chest discomfort. Severity is 10/10 patient presented on 03/06/2024 CT imaging was done which showed a large hypodense mass in the head of the pancreas with irregular margins, suspicion for pancreatic carcinoma. Patient had a biopsy done about a week ago at [facility], pathology report were supposed to be sent to his PCP but seems to have been lost in transit. He also endorses loss of appetite about 2 episodes of vomiting, weight loss and weakness but denies diarrhea, fever or cough. The patient was started on [place] to be used every 6 hours, and has had constipation from opioid use, last bowel movement was about a month ago until yesterday when he had an enema, however pain remains uncontrolled. Per patient, he quit smoking and drinking and has not had a smoke or drink in many years. ED course: In the ED, patient was afebrile, hypertensive with a blood pressure 159/93 and saturating 98% on room air. Labs showed WBC of 12.4 Hgb 13.2 PLT 173 NA 130 K3.5 CL 93 bicarb 21 BUN 13 creatinine 0.7 glucose 126 slightly elevated AST and ALT. UA showed 2+ ketones but otherwise unremarkable. Chest x-ray was done and showed no active disease. Patient was given Zofran, IV morphine, 2 L of IV fluid and 2 mg of Dilaudid and is being admitted for management of intractable pain. Review of Systems Review of Systems Narrative Review of Systems: GENERAL: Denies fevers/chills or diaphoresis. HEENT: Denies headache or visual/hearing changes. Denies nasal discharge. NEURO: Admits weakness, denies difficulty speaking. CARDIO: Admits chest pain, denies palpitations PULM: Denies SOB, coughing, or wheezing. GI: Admits abdominal pain, nausea and vomiting, constipation URO: Denies burning/itching/pain/urinary changes. MSK/EXT/SKIN: Denies joint/skeletal/muscle pain, issues/changes in upper or lower extremities, itchiness, or superficial pain. PSYCH: Cooperative, pleasant mood & affect. Exam Vital Signs Temp Pulse Resp BP Pulse Ox O2 Del Method 98.5 F 66 18 153/88 H 97 Room Air 03/31/24 00:36 03/31/24 00:36 03/31/24 00:36 03/31/24 00:36 03/31/24 00:36 03/31/24 00:36 Narrative Exam GENERAL: AAOX3. NEURO: SCOREBOARD OPERATOR grossly intact, moves extremities x4. HEENT: Moist mucosa. Eyes open, symmetrical, & clear. CARDIO: No chest pain on palpation. Heart RRR, no obvious murmurs. PULM: No noted coughing/dyspnea. Lungs CTA B/L. GI: Abdomen soft, nondistended, tender to palpation diffusely, worse in the epigastrium. URO/SOLE CONFORMING MACHINE OPERATOR:: No further abnormalities noted. SKIN/MSK/EXT: No wounds/rashes/edema/amputations, no pain on palpation. Pedal pulses present B/L. Results: Labs 03/30/24 20:06 03/30/24 20:06 Labs: Short CBC 03/30/24 Range/Units 20:06 WBC 12.4 H (3.8-10.6) Thou/mm3 Hgb 13.2 L (13.5-16.0) g/dL Hct 37.8 L (41.0-53.0) % Plt Count 173 (140-440) Thou/mm3 [facility] 03/30/24 20:06 Sodium 130 L Potassium 3.5 Chloride 93 L Carbon Dioxide 21.0 BUN 13 Creatinine 0.7 Glucose 126 H Calcium 10.1 Cardiac Enzymes 03/30/24 Range/Units 20:06 Troponin I < 0.020 (0.0-0.045) ng/mL Liver Function 03/30/24 Range/Units 20:06 Total Bilirubin 1.0 (0.3-1.2) mg/dL AST 43 H (0-34) U/L ALT 71 H (10-49) U/L Alkaline Phosphatase 100 (46-116) U/L Albumin 4.1 (3.4-4.8) gm/dL Urine 03/30/24 Range/Units 21:50 Urine Color Yellow (Lt Yel-Yel) Urine Clarity Turbid A (Clear/Hazy) Urine pH 6.5 (5.0-7.0) Ur Specific [place] 1.011 (1.001-1.035) Urine Protein Trace (Neg - Trace) Urine Glucose (UA) Negative (Negative) Quality Measures Quality Measures none Advance care planning discussed with:: patient Medications Home Medications and Allergies Home Medications ?Medication ?Instructions ?Recorded ?Confirmed ?Type lisinopril 20 mg tablet 20 mg PO QDAY 12/24/22 12/25/22 History Allergies Allergy/AdvReac Type Severity Reaction Status Date / Time No Known Allergies Allergy Verified 12/25/22 11:26 Visit Medications Enoxaparin Sodium (Enoxaparin Sod Inj 40 Mg/0.4 Ml Syringe) 40 mg SC QDAY NIKKO Stop: 04/14/24 08:59 Hydromorphone HCl (Hydromorphone Inj 2 Mg/Ml Vial) 1 mg IVP Q2H PRN PRN Reason: PAIN Stop: 04/05/24 00:43 Sodium Chloride (Ns) 1,000 mls @ 100 mls/hr IV .Q10H ONE Stop: 03/31/24 10:44 Last Admin: 03/31/24 01:10 Dose: 100 mls/hr Discontinued Medications Hydromorphone HCl (Hydromorphone Inj 2 Mg/Ml Vial) 1 mg IVP X1 ONE Stop: 03/30/24 21:51 Last Admin: 03/30/24 21:54 Dose: 1 mg Hydromorphone HCl (Hydromorphone Inj 2 Mg/Ml Vial) 1 mg IVP X1 ONE Stop: 03/31/24 00:25 Last Admin: 03/31/24 00:45 Dose: 1 mg Sodium Chloride (Ns) 1,000 mls @ 999 mls/hr IV .Q1H1M ONE Stop: 03/30/24 21:22 Last Infusion: 03/30/24 21:46 Dose: Infused Sodium Chloride (Ns) 1,000 mls @ 999 mls/hr IV .Q1H1M ONE Stop: 03/30/24 21:22 Last Infusion: 03/30/24 21:46 Dose: Infused Morphine Sulfate (Morphine Sulf Inj 10 Mg/Ml Vial) 5 mg IVP X1 ONE Stop: 03/30/24 20:23 Last Admin: 03/30/24 20:36 Dose: 5 mg Ondansetron HCl (Ondansetron Inj 2 Mg/Ml Inj 2 Ml) 4 mg IV X1 ONE Stop: 03/30/24 20:23 Last Admin: 03/30/24 20:36 Dose: 4 mg Ondansetron HCl (Ondansetron Inj 2 Mg/Ml Inj 2 Ml) 4 mg IV X1 ONE Stop: 03/31/24 00:25 Last Admin: 03/31/24 00:45 Dose: 4 mg Assessment & Plan Assessment Summary: The patient is a 68-year-old male with a past medical history of hypertension and recently diagnosed pancreatic adenocarcinoma who presents to the ED on 03/31/2024 with complaints of chest and abdominal pain of about 2-month duration. He had a biopsy done about a week ago at [facility], pathology report in the chart #Pancreatic adenocarcinoma with liver metastasis #Intractable pain Patient presents with a 2-month history of chest and diffuse abdominal pain, worse in the epigastric region, radiating to the back, 10/10 in severity. He presented to the ED on 03/06/[address] imaging was done which showed a large hypodense mass in the head of the pancreas with irregular margins, with a suspicion for pancreatic carcinoma. He had a biopsy done about a week ago at [facility], retrieved pathology reports- showed pancreatic adenocarcinoma He has been on [place] 5 mg every 6 hours, but pain remains uncontrolled. Additionally, he has had constipation and last bowel movement until yesterday was about a month ago. Plan: -Admit to MedSurg -Pain management with IV Dilaudid -Nausea management with Zofran -Oncology consulted, appreciate recommendations #History of hypertension The patient has a history of hypertension and is on lisinopril 20 mg daily, recently prescribed, however he states he has not been taking medications. Blood pressure on admission elevated. Plan: -Start lisinopril 20 mg daily Health maintenance: Dispo: MedSurg Diet: Cardiac DVT: Lovenox PT: Not ordered Code: Full Case was discussed with attending physician, Dr Luis Higgins MD PGY-1 Attending Provider Attestation/Addendum Pt was evaluated and plan formulated together with the housestaff team. I have reviewed the residents note above and agree with most of its content. Please refer to the residents note for additional details.
[2024-03-31 04:55] LABS: Basophils % (Auto) 0 % (0-2.5); Eosinophils % (Auto) 0 % (0-10); Hematocrit 38.1 % (41.0-53.0); Hemoglobin 13.2 g/dL (13.5-16.0); Immature Granulocytes % (Auto) 1 % (0-0); Immature Granulocytes Auto 0.08 Thou/mm3 (0.00-0.00); Lymphocytes # (Auto) 0.8 Thou/mm3 (1.0-4.8); Lymphocytes % (Auto) 9 % (10-50); Mean Corpuscular HGB Conc 34.6 g/dl (31.0-37.0); Mean Corpuscular Hemoglobin 32.6 pg (25.0-35.0); Mean Corpuscular Volume 94 fL (80-100); Monocytes # (Auto) 0.3 Thou/mm3 (0.0-0.8); Monocytes % (Auto) 3 % (0-12); Neutrophils # (Auto) 8.3 Thou/mm3 (1.8-7.7); Neutrophils % (Auto) 87 % (37-80); Nucleated Red Blood Cell % 0 /100 WBC (0); Platelet Count 136 Thou/mm3 (140-440); Red Blood Count 4.05 Miln/mm3 (4.50-5.90); White Blood Count 9.5 Thou/mm3 (3.8-10.6)
[2024-03-31 05:06] LABS: Anion Gap 11 (7-16); BUN/Creatinine Ratio 18 Ratio (12-20); Blood Urea Nitrogen 11 mg/dL (9-23); Calcium 8.8 mg/dL (8.3-10.6); Carbon Dioxide 24.2 mMol/L (20.0-31.0); Chloride 99 mMol/L (98-107); Creatinine (Component) 0.6 mg/dL (0.6-1.3); Estimated Creatinine Clearance 136.6 mL/min (>60); Glucose 109 mg/dL (74-106); Osmolality,Calculated 268 (275-295); Potassium 3.4 mMol/L (3.4-5.1); Sodium 134 mMol/L (136-145); eGFR > 60 See Note
--- NOTE | 2024-03-31 08:08 | PD.ONCCONS ---
HPI Data of Consult Consult date: 03/31/24 Requesting Physician: Luis Antonio Smith MD Primary Care Provider: Tete Gallardo MD Consult Narrative Reason for consult: Pancreatic cancer with abdominal pain History of present illness: Patient is 68-year-old gentleman with abdominal pelvic pain had CT abdomen pelvis 03/06/2024 revealing a large hypodense mass head of the pancreas irregular margins measuring at least 5.8 x 6.2 cm with the likelihood of pancreatic carcinoma. There are also small low-density liver lesions. Patient was evaluated [facility] last week with multiple imaging studies and a biopsy of the pancreatic head reportedly revealing adenocarcinoma. Imaging studies reportedly revealed liver mets. The records are not immediately available to me now. Patient came into the hospital with complaints of severe abdominal pain radiating to the back needing parenteral opioids to achieve comfort. Labs on admission 12.4 WBC hemoglobin 13.2 platelets 173. AST ALT mildly elevated. Bilirubin was 1.0. Patient now referred for oncological consultation. cc:: cc: Luis Antonio Smith MD Past Medical History Family History OTHER FAMILY HX: No family history of cancer Social History SOCIAL: Patient has been disabled for 30 years due to work related injury. Denies smoking drinking is a no kids lives alone Past Medical History Comments PMH COMMENT: Hypertension arthritis osteoporosis Meds Home Medications and Allergies Home Medications ?Medication ?Instructions ?Recorded ?Confirmed ?Type lisinopril 20 mg tablet 20 mg PO QDAY 12/24/22 12/25/22 History Allergies Allergy/AdvReac Type Severity Reaction Status Date / Time No Known Allergies Allergy Verified 12/25/22 11:26 Exam Vital Signs Temp Pulse Resp BP Pulse Ox O2 Del Method O2 Flow Rate 98.2 F 93 20 133/82 H 95 Room Air 2 03/31/24 06:33 03/31/24 06:33 03/31/24 06:33 03/31/24 06:33 03/31/24 06:33 03/31/24 06:33 03/31/24 03:52 Narrative Exam Lying comfortably now answering questions appropriately. Results Labs 03/31/24 04:25 03/31/24 04:25 Labs: Short CBC 03/30/24 03/31/24 Range/Units 20:06 04:25 WBC 12.4 H 9.5 (3.8-10.6) Thou/mm3 Hgb 13.2 L 13.2 L (13.5-16.0) g/dL Hct 37.8 L 38.1 L (41.0-53.0) % Plt Count 173 136 L D (140-440) Thou/mm3 BMP 03/30/24 03/31/24 20:06 04:25 Sodium 130 L 134 L Potassium 3.5 3.4 Chloride 93 L 99 Carbon Dioxide 21.0 24.2 BUN 13 11 Creatinine 0.7 0.6 Glucose 126 H 109 H Calcium 10.1 8.8 Cardiac Enzymes 03/30/24 Range/Units 20:06 Troponin I < 0.020 (0.0-0.045) ng/mL Liver Function 03/30/24 Range/Units 20:06 Total Bilirubin 1.0 (0.3-1.2) mg/dL AST 43 H (0-34) U/L ALT 71 H (10-49) U/L Alkaline Phosphatase 100 (46-116) U/L Albumin 4.1 (3.4-4.8) gm/dL Urine 03/30/24 Range/Units 21:50 Urine Color Yellow (Lt Yel-Yel) Urine Clarity Turbid A (Clear/Hazy) Urine pH 6.5 (5.0-7.0) Ur Specific [place] 1.011 (1.001-1.035) Urine Protein Trace (Neg - Trace) Urine Glucose (UA) Negative (Negative) Assessment and Plan Additional Assessment & Plan Additional Plan: 1. Recent diagnosis of pancreatic adenocarcinoma a week ago at [facility]. Appears to be stage IV with liver mets. . Multiple imaging studies done including MRI CT results not immediately available to us. 2. Will attempt to get all the records at [facility] and see patient as an outpatient at [facility]. Patient prefers to get treatment closer to home. 3. Patient will get authorization from primary care provider for referral. 4. Thank you for allowing me to evaluate this patient
[2024-03-31] MEDS: Lisinopril 20 MG TABLET PO (09:07)
[2024-03-31] MEDS: ENOXAPARIN SOD INJ 40 MG/0.4 ML SYRINGE SC (09:08)
[2024-03-31 10:40] LABS: Carcinoembryonic Antigen 3.7 ng/mL (0.0-5.0)
[2024-03-31] MEDS: NALOXEGOL OXALATE 25 MG TABLET (NON-FORMULARY) 12.5 MG PO (10:48)
--- NOTE | 2024-03-31 11:16 | XR_ITS ---
Examination: Abdomen AP single view Technique: AP portable supine abdomen, single view Exam date and time: March 31, 2024 1144 hours INDICATIONS: Abdominal pain this week, diagnosis pancreatic cancer 2 months ago FINDINGS: Moderate to large amounts of stool in the right and transverse colon No obstruction No free air Bilateral hip replacements IMPRESSION: Nonobstructive bowel gas
--- NOTE | 2024-03-31 11:20 | ESPR_ITS ---
Documentation for date of: 03/31/24 Subjective Subjective Interval history: No acute overnight events. Patient continues to endorse constipation, abdominal and back pain, rated 10 out of 10 despite scheduled DILAUDID. 10 out of 10 pain despite scheduled DILAUDID. Denies fever, chills, headaches, chest pain, sob, or cough. Exam Vital Signs Temp Pulse Resp BP Pulse Ox O2 Del Method O2 Flow Rate 98.3 F 105 H 18 144/78 H 92 L Room Air 2 03/31/24 08:00 03/31/24 09:07 03/31/24 08:00 03/31/24 09:07 03/31/24 08:00 03/31/24 08:00 03/31/24 03:52 Narrative Exam GENERAL: Normal appearing adult male, moderate distress due to pain HEENT: NCAT.?ROBERTO. Oral mucosa is moist. Patent Nares NECK: Supple, nontender, no thyromegaly, no meningismus, no JVD, no step offs CHEST: Symmetrical, atraumatic, and with equal expansion, Nontender on palpation no deformity and no crepitus. CARDIOVASCULAR: Tachycardia, regular rhythm, no m/g/r LUNGS: CTAB, no w/r/r. Symmetrical chest rise. No intercostal subcostal retraction. ABDOMEN: Rigid, tender, distended. No guarding/rebound tenderness/masses. Bowel sounds EXTREMITIES: Nontender.? No edema/cyanosis.?Moves all 4 extremities well, with full ROM and good CSM. SKIN: Warm and dry, no jaundice/rashes. MSK: No lumbar or midline, mild low back paraspinal tenderness, no obvious deformities NEURO: CAI x4, CN II-XII grossly intact.?No focal neurologic deficits. PSYCHIATRIC: Normal mood and affect, cooperative, no SI or HI or hallucinations. Objective Labs 03/31/24 04:25 03/31/24 04:25 Labs: Laboratory Results - last 24 hr 03/30/24 03/30/24 03/31/24 20:06 21:50 04:25 WBC 12.4 H 9.5 RBC 4.09 L 4.05 L Hgb 13.2 L 13.2 L Hct 37.8 L 38.1 L MCV 92 94 MCH 32.3 32.6 MCHC 34.9 34.6 RDW Std Deviation 45.1 H 46.0 H Plt Count 173 136 L D Neut % (Auto) 78 87 H Lymph % (Auto) 11 9 L [place] % (Auto) 9 3 Eos % (Auto) 1 0 Baso % (Auto) 0 0 Neut # (Auto) 9.7 H 8.3 H Lymph # (Auto) 1.3 0.8 L [place] # (Auto) 1.2 H 0.3 Eos # (Auto) 0.1 0.0 Baso # (Auto) 0.0 0.0 Immature Gran # (Auto) 0.13 H 0.08 H Absolute Nucleated RBC 0.00 0.00 Immature Gran % 1 H 1 H Nucleated RBC % 0 0 PT 13.7 H INR 1.3 APTT 29.3 Sodium 130 L 134 L Potassium 3.5 3.4 Chloride 93 L 99 Carbon Dioxide 21.0 24.2 Anion Gap 16 11 BUN 13 11 Creatinine 0.7 0.6 Estim Creat Clear Calc 117.1 136.6 eGFR > 60 > 60 BUN/Creatinine Ratio 19 18 Glucose 126 H 109 H Calculated Osmolality 262 L 268 L Calcium 10.1 8.8 Corrected Calcium 10.1 Magnesium 1.9 Total Bilirubin 1.0 AST 43 H ALT 71 H Alkaline Phosphatase 100 Troponin I < 0.020 B-Natriuretic Peptide 28 Total Protein 6.9 Albumin 4.1 Globulin 2.8 Albumin/Globulin Ratio 1.5 Lipase 21 Carcinoembryonic Ag Ur Collection Type Clean Catch Urine Color Yellow Urine Clarity Turbid A Urine pH 6.5 Ur Specific [place] 1.011 Urine Protein Trace Urine Glucose (UA) Negative Urine Ketones 2+ A Urine Blood Trace Urine Nitrite Negative Urine Bilirubin Negative Urine Urobilinogen (Auto) 3.0 Ur Leukocyte Esterase Negative Urine RBC 5 H Urine WBC 0 Ur Squamous Epith Cells 0 Urine Bacteria Rare Ur Culture Indicated? Not Indicated 03/31/24 10:04 WBC RBC Hgb Hct MCV MCH MCHC RDW Std Deviation Plt Count Neut % (Auto) Lymph % (Auto) [place] % (Auto) Eos % (Auto) Baso % (Auto) Neut # (Auto) Lymph # (Auto) [place] # (Auto) Eos # (Auto) Baso # (Auto) Immature Gran # (Auto) Absolute Nucleated RBC Immature Gran % Nucleated RBC % PT INR APTT Sodium Potassium Chloride Carbon Dioxide Anion Gap BUN Creatinine Estim Creat Clear Calc eGFR BUN/Creatinine Ratio Glucose Calculated Osmolality Calcium Corrected Calcium Magnesium Total Bilirubin AST ALT Alkaline Phosphatase Troponin I B-Natriuretic Peptide Total Protein Albumin Globulin Albumin/Globulin Ratio Lipase Carcinoembryonic Ag 3.7 Ur Collection Type Urine Color Urine Clarity Urine pH Ur Specific [place] Urine Protein Urine Glucose (UA) Urine Ketones Urine Blood Urine Nitrite Urine Bilirubin Urine Urobilinogen (Auto) Ur Leukocyte Esterase Urine RBC Urine WBC Ur Squamous Epith Cells Urine Bacteria Ur Culture Indicated? Quality Measures Quality Measures none Advance care planning discussed with:: patient Assessment & Plan Assessment Current Active Medications: Generic Name Dose Route Start Last Admin Trade Name Freq PRN Reason Stop Dose Admin Enoxaparin Sodium 40 mg 03/31/24 09:00 03/31/24 09:08 Enoxaparin Sod Inj 40 Mg/0.4 Ml Syringe SC 04/14/24 08:59 40 mg QDAY NIKKO Administration Hydromorphone HCl 1 mg 03/31/24 00:44 03/31/24 10:55 Hydromorphone Inj 2 Mg/Ml Vial IVP 04/05/24 00:43 1 mg Q2H PRN Administration PAIN Lisinopril 20 mg 03/31/24 09:00 03/31/24 09:07 Lisinopril 20 Mg Tablet PO 04/30/24 08:59 20 mg QDAY NIKKO Administration Naloxegol 12.5 mg 03/31/24 09:00 03/31/24 10:48 Naloxegol Oxalate 25 Mg Tablet (Non-Formulary) PO 04/30/24 08:59 12.5 mg QDAY NIKKO Administration Plan In summary: 64-year-old male with PMHx of chronic alcohol use, distant history of tobacco use, recently diagnosed stage IV pancreatic adenocarcinoma with liver mets, admitted for constipation, urine tension and intractable. Dr. Macias, oncology following, recommended pain control, to continue management outpatient. Abdominal x-ray for SBO, patient started on MOVANTIK. Spoke with Dr. Gallardo's office (PCP), referral to see Dr. Macias outpatient as already placed. Stage IV pancreatic adenocarcinoma with liver mets Intractable pain 2/2 above Pancreatic adenocarcinoma diagnosed 1 week ago at [facility] with signs of liver mets Patient was discharged on NORCO to be referred to oncology Intractable abdominal pain radiating to the back despite NORCO Currently rates pain 10 out of 10 despite DILAUDID ? Dr. Macias, oncology following, recommended outpatient follow-up, pain control as below ? Will discharge patient on pain control for 1 week duration until he sees oncology ? Pending CA 19-9 ? MSER 30 mg BID for 10 days ? MSIR 10 mg Q4H (total 30 pills) Constipation Urinary retention DDx: Worsening malignancy, possible GI mets, opiate induced 1 month persistent constipation and difficulty urinating Last BM Thursday, small normal consistency 2 times episodes of vomiting stomach content prior to admission Distended, tender abdomen on exam Urinary retention likely 2/2 constipation, anticipate improvement once constipation resolved Abdominal x-ray negative for SBO ? Started MOVANTIK ? Multiple bowel regimen on board Hypertension Sinus tachycardia History of hypertension, BP 144/78 Sinus tachycardia on EKG likely 2/2 pain, HR 105 No chest pain Anticipate tachycardia will improve with pain control ? Resumed home LISINOPRIL 20 mg daily ? Daily vitals Leukocytosis (resolved) Likely reactive ? Daily CBC Health maintenance Diet: N.p.o. for now GI prophylaxis: PROTONIX DVT prophylaxis: SCDs Antibiotics: Not indicated CODE STATUS: Full code Disposition: Pending constipation improvement Patient case was discussed with attending, Cory Casey MD and senior residents Dr. Lerma and Dr. Anderson. Sabina Padgett DO PGYI Attending Provider Attestation/Addendum I reviewed labs, imaging, EKG, home medications and prior available records. Face to face evaluation was performed by me. I have personally examined the patient and discussed assessment and plan with the IM team. I reviewed the resident note and agree with the plan with exceptions as below. Adenocarcinoma of the pancreas: Recent diagnosis. Symptomatic. Consulted oncology: Recommended symptomatic management. Will start 30 mg ER morphine twice daily plus 10 mg of fast acting p.o. morphine as needed. Started dronabinol for appetite stimulation. Outpatient oncology referral/follow-up. Constipation: Likely in setting of opiate use. Started Movantik. Ordered abdominal x-ray: Showed nonobstructive pattern. Senna as needed. Thrombocytopenia: Mild. Likely in the setting of advanced malignancy. No signs of active bleeding. Monitor CBC.
[2024-03-31] MEDS: MORPHINE SULF 30 MG TABCR PO ×2 (14:30→21:19)
--- NOTE | 2024-03-31 15:49 | PD.ONCPROG ---
Documentation for date of: 03/31/24 Subjective Subjective Interval history: Pain experiencing significant pain reportedly 10 out of 10 Exam Vital Signs Temp Pulse Resp BP Pulse Ox O2 Del Method O2 Flow Rate 97.0 F 97 16 120/78 99 Room Air 2 03/31/24 12:00 03/31/24 12:00 03/31/24 12:00 03/31/24 12:00 03/31/24 12:00 03/31/24 12:00 03/31/24 03:52 Objective Labs 03/31/24 04:25 03/31/24 04:25 Labs: Laboratory Results - last 24 hr 03/30/24 03/30/24 03/31/24 20:06 21:50 04:25 WBC 12.4 H 9.5 RBC 4.09 L 4.05 L Hgb 13.2 L 13.2 L Hct 37.8 L 38.1 L MCV 92 94 MCH 32.3 32.6 MCHC 34.9 34.6 RDW Std Deviation 45.1 H 46.0 H Plt Count 173 136 L D Neut % (Auto) 78 87 H Lymph % (Auto) 11 9 L [place] % (Auto) 9 3 Eos % (Auto) 1 0 Baso % (Auto) 0 0 Neut # (Auto) 9.7 H 8.3 H Lymph # (Auto) 1.3 0.8 L [place] # (Auto) 1.2 H 0.3 Eos # (Auto) 0.1 0.0 Baso # (Auto) 0.0 0.0 Immature Gran # (Auto) 0.13 H 0.08 H Absolute Nucleated RBC 0.00 0.00 Immature Gran % 1 H 1 H Nucleated RBC % 0 0 PT 13.7 H INR 1.3 APTT 29.3 Sodium 130 L 134 L Potassium 3.5 3.4 Chloride 93 L 99 Carbon Dioxide 21.0 24.2 Anion Gap 16 11 BUN 13 11 Creatinine 0.7 0.6 Estim Creat Clear Calc 117.1 136.6 eGFR > 60 > 60 BUN/Creatinine Ratio 19 18 Glucose 126 H 109 H Calculated Osmolality 262 L 268 L Calcium 10.1 8.8 Corrected Calcium 10.1 Magnesium 1.9 Total Bilirubin 1.0 AST 43 H ALT 71 H Alkaline Phosphatase 100 Troponin I < 0.020 B-Natriuretic Peptide 28 Total Protein 6.9 Albumin 4.1 Globulin 2.8 Albumin/Globulin Ratio 1.5 Lipase 21 Carcinoembryonic Ag Ur Collection Type Clean Catch Urine Color Yellow Urine Clarity Turbid A Urine pH 6.5 Ur Specific [place] 1.011 Urine Protein Trace Urine Glucose (UA) Negative Urine Ketones 2+ A Urine Blood Trace Urine Nitrite Negative Urine Bilirubin Negative Urine Urobilinogen (Auto) 3.0 Ur Leukocyte Esterase Negative Urine RBC 5 H Urine WBC 0 Ur Squamous Epith Cells 0 Urine Bacteria Rare Ur Culture Indicated? Not Indicated 03/31/24 10:04 WBC RBC Hgb Hct MCV MCH MCHC RDW Std Deviation Plt Count Neut % (Auto) Lymph % (Auto) [place] % (Auto) Eos % (Auto) Baso % (Auto) Neut # (Auto) Lymph # (Auto) [place] # (Auto) Eos # (Auto) Baso # (Auto) Immature Gran # (Auto) Absolute Nucleated RBC Immature Gran % Nucleated RBC % PT INR APTT Sodium Potassium Chloride Carbon Dioxide Anion Gap BUN Creatinine Estim Creat Clear Calc eGFR BUN/Creatinine Ratio Glucose Calculated Osmolality Calcium Corrected Calcium Magnesium Total Bilirubin AST ALT Alkaline Phosphatase Troponin I B-Natriuretic Peptide Total Protein Albumin Globulin Albumin/Globulin Ratio Lipase Carcinoembryonic Ag 3.7 Ur Collection Type Urine Color Urine Clarity Urine pH Ur Specific [place] Urine Protein Urine Glucose (UA) Urine Ketones Urine Blood Urine Nitrite Urine Bilirubin Urine Urobilinogen (Auto) Ur Leukocyte Esterase Urine RBC Urine WBC Ur Squamous Epith Cells Urine Bacteria Ur Culture Indicated? Assessment & Plan A&P Narrative 1. Recent diagnosis of pancreatic adenocarcinoma a week ago at [facility]. Appears to be stage IV with liver mets. . Multiple imaging studies done including MRI CT results not immediately available to us. 2. Will attempt to get all the records at [facility] and see patient as an outpatient at [facility]. Patient prefers to get treatment closer to home. 3. Patient will get authorization from primary care provider for referral. 4. Spoke with Dr Padgett regarding discharging patients with about 10 days worth of opioids before I could see the patient again. MS ER 30 mg twice daily 20 tabs MS IR 10 mg every 4 as needed 30 tabs. Hope to see the patient within that time. Patient can call at [facility] if he is in a pain crisis prior to his appointment. Time Spent With Patient Time: Total time spent is greater than 50% in coordination of care (as documented) at patient's floor/unit and/or counseling patient:
--- NOTE | 2024-03-31 16:03 | PC.SS ---
Addendum entered by Alie Esposito 03/31/24 16:04: SS received update from [facility]. Re-scheduled appt. for , at 9:30a.m. with Dr. Bach Updated patient who is aware. Original Note: SS met with patient who is alert/oriented. He states he resides alone. He has been independent with ADL's so far. However, patient has been newly diagnosed with pancreatic cancer. Patient states he's in a lot of pain. He was diagnosed at [facility] right after Thanksiving. Patient is pending a consultation with our [facility] and appt. is scheduled for Apr.25. Patient is frustrated and would like an earlier appt. as he already went through consultation process at [facility]. Sounds as if medical records are still pending to be provided to [facility]. SS spoke to Carrie, RN at [facility] to verify if we can expedite appt. earlier. However, she states they are booked and she will see if there are any cancellations or if she can switch around patient's appointments. SS will see if we can get a PT eval. Patient states he was having difficulty ambulating prior to coming into hospital. Patient was picked up by ambulance from home. Patient is also getting very anxious about not finding his cell phone/ID/home medications that were placed in a bag. SS already contacted ambulance co. for patient and they did not have anything. They believe patient left this at home. SS discussed with patient home health vs palliative care as alternate options upon discharge for additional support. Patient will consider which one he prefers based on how he feels closer to discharge. Patient states he alreayd has a walker and wheelhair at home. Patient has support through a friend/neighbor, Akin. He also has a friend/neighbor, Shellie. He states between them, they can assist as needed. SS provided patient with contact numbers for [employer] transportation assistance and homecare services. Patient states his friends can transport him to appointments. Patient's alt medical decision maker is his friend, Akin. Phone number pending. D/c plan: home w/further resources.
[2024-03-31] MEDS: droNABinol 2.5 MG CAPSULE PO (17:47)
[2024-04-01] VITALS: BP 126/66; PULSE 90; RESP 18; TEMP 37.1; O2SAT 94
[2024-04-01 04:00] VITALS: BP 164/86; PULSE 105; RESP 18; TEMP 36.9; O2SAT 97
[2024-04-01 05:57] LABS: Basophils % (Auto) 0 % (0-2.5); Eosinophils % (Auto) 0 % (0-10); Hematocrit 37.1 % (41.0-53.0); Hemoglobin 12.7 g/dL (13.5-16.0); Immature Granulocytes % (Auto) 1 % (0-0); Immature Granulocytes Auto 0.09 Thou/mm3 (0.00-0.00); Lymphocytes # (Auto) 0.6 Thou/mm3 (1.0-4.8); Lymphocytes % (Auto) 6 % (10-50); Mean Corpuscular HGB Conc 34.2 g/dl (31.0-37.0); Mean Corpuscular Hemoglobin 32.2 pg (25.0-35.0); Mean Corpuscular Volume 94 fL (80-100); Monocytes # (Auto) 0.4 Thou/mm3 (0.0-0.8); Monocytes % (Auto) 3 % (0-12); Neutrophils # (Auto) 9.2 Thou/mm3 (1.8-7.7); Neutrophils % (Auto) 89 % (37-80); Nucleated Red Blood Cell % 0 /100 WBC (0); Platelet Count 141 Thou/mm3 (140-440); RDW Standard Deviation 46.6 fL (35.1-43.9); Red Blood Count 3.94 Miln/mm3 (4.50-5.90); White Blood Count 10.3 Thou/mm3 (3.8-10.6)
[2024-04-01 06:22] LABS: Anion Gap 10 (7-16); BUN/Creatinine Ratio 10 Ratio (12-20); Blood Urea Nitrogen 7 mg/dL (9-23); Calcium 9.2 mg/dL (8.3-10.6); Carbon Dioxide 26.4 mMol/L (20.0-31.0); Chloride 95 mMol/L (98-107); Creatinine (Component) 0.7 mg/dL (0.6-1.3); Estimated Creatinine Clearance 116.6 mL/min (>60); Glucose 104 mg/dL (74-106); Osmolality,Calculated 260 (275-295); Potassium 3.8 mMol/L (3.4-5.1); Sodium 131 mMol/L (136-145); eGFR > 60 See Note
[2024-04-01] MEDS: droNABinol 2.5 MG CAPSULE PO (07:46)
[2024-04-01 08:00] VITALS: BP 107/76; PULSE 96; RESP 18; TEMP 36.2; O2SAT 97
[2024-04-01 08:37] VITALS: BP 107/76; PULSE 96
[2024-04-01] MEDS: Lisinopril 20 MG TABLET PO (08:37)
[2024-04-01] MEDS: MORPHINE SULF 30 MG TABCR PO (08:37)
[2024-04-01] MEDS: ENOXAPARIN SOD INJ 40 MG/0.4 ML SYRINGE SC (08:37)
[2024-04-01] MEDS: MORPHINE SULF LIQD 10 MG/5 ML UDC PO (09:36)
--- NOTE | 2024-04-01 11:49 | PC.SS ---
Follow up note: SS followed up with patient who states he would be interested in palliative care. He is agreeable to [facility]. Patient's p.c.p. Dr. Gallardo last appt. was February.
[2024-04-01 12:00] VITALS: BP 113/77; PULSE 97; RESP 18; TEMP 36.2; O2SAT 91
--- NOTE | 2024-04-01 16:05 | ESDS_ITS ---
Planned Discharge Date 04/01/24 DS: Providers Provider Date of admission: 03/31/24 00:44 Primary care physician: Tete Gallardo MD Admitting Provider: Luis Antonio Smith MD Attending Provider on Admission: Cory Casey MD Consults: 03/31/24 01:27 Consult to Oncology Routine Comment: Consulting Provider: Adilson Macias Attending Provider on DC: Cory Casey MD Discharging Provider: Cory Casey MD Diagnosis Problem List Completed Was Problem List Reviewed/Reconciled?: Yes Hospital Course - Hospitalist Hospital Course Hospital course: 68-year-old male with a past medical history of hypertension and recently diagnosec pancreatic adenocarcinoma who presents to the ED on 03/31/2024 with complaints of chest and abdominal pain of about two month duration. The patient reports that his symptoms started in January with abdominal pain initially located in the epigastric region and progressed to be diffuse and radiating to the back, associated with chest discomfort. Severity is 10/10 patient presented on 03/06/2024 CT imaging was done which showed a large hypodense mass in the head of the pancreas with irregular margins, suspicion for pancreatic carcinoma. Patient had a biopsy done about a week ago at [facility], pathology report were supposed to be sent to his PCP but seems to have been lost in transit. He also endorses loss of appetite about 2 episodes of vomiting, weight loss and weakness but denies diarrhea, fever or cough. The patient was started on [place] to be used every 6 hours, and has had constipation from opioid use, last bowel movement was about a month ago until yesterday when he had an enema, however pain remains uncontrolled. Per patient, he quit smoking and drinking and has not had a smoke or drink in many years. ED course: In the ED, patient was afebrile, hypertensive with a blood pressure 159/93 and saturating 98% on room air. Labs showed WBC of 12.4 Hgb 13.2 PLT 173 NA 130 K3.5 CL 93 bicarb 21 BUN 13 creatinine 0.7 glucose 126 slightly elevated AST and ALT. UA showed 2+ ketones but otherwise unremarkable. Chest x-ray was done and showed no active disease. Patient was given Zofran, IV morphine, 2 L of IV fluid and 2 mg of Dilaudid and is being admitted for management of intractable pain. Hospital course: He was admitted for pain and constipation management. He was given p.o. morphine both pills and liquid. He did not tolerate the pills however his pain responded well to liquid morphine. He was started on dronabinol for appetite stimulation and he was more able to tolerate p.o. intake. Patient mentioned that his constipation is chronic to him and he did not want to wait in the hospital to have a bowel movement. His constipation is not bothering him as it is chronic to him. Oncology was consulted and recommended to continue to manage the pain as well as outpatient oncology follow-up. Discussed with social work job titles who arranged for outpatient oncology follow-up. Medical problems upon discharge: Adenocarcinoma of the pancreas: Recent diagnosis. Symptomatic however symptoms improved. Consulted oncology: Recommended symptomatic management. Will discharge on liquid morphine 10 mg every 4 hours as needed. Hold home [place] to avoid duplicate treatment with opiates. Started dronabinol for appetite stimulation. Outpatient oncology referral/follow-up. Constipation: Likely in setting of opiate use. Started Movantik. Ordered abdominal x-ray: Showed nonobstructive pattern. Prescribed GoLytely which the patient mentioned that is the best medication to help with constipation. Prescribed docusate senna. Thrombocytopenia: Mild. Likely in the setting of advanced malignancy. No signs of active bleeding. Monitor CBC. Time spent is 40 minutes. More than 50% of the time was spent on patient education and coordination of care. Time Spent with Patient Time attestation: Total time spent providing and/or coordinating discharge services: Discharge Results Labs Diagrams: 04/01/24 05:24 04/01/24 05:24 Labs: Short CBC 04/01/24 Range/Units 05:24 WBC 10.3 (3.8-10.6) Thou/mm3 Hgb 12.7 L (13.5-16.0) g/dL Hct 37.1 L (41.0-53.0) % Plt Count 141 (140-440) Thou/mm3 BMP 04/01/24 05:24 Sodium 131 L Potassium 3.8 Chloride 95 L Carbon Dioxide 26.4 BUN 7 L Creatinine 0.7 Glucose 104 Calcium 9.2 Exam Vital Signs Temp Pulse Resp BP Pulse Ox O2 Del Method O2 Flow Rate 97.1 F 97 18 113/77 91 L Room Air 2 04/01/24 12:00 04/01/24 12:00 04/01/24 12:04/01/24 12:00 04/01/24 12:00 04/01/24 12:00 03/31/24 03:52 Narrative General: Alert and oriented x3. In no acute distress. Eyes: Pupils are equal and reactive to light bilaterally. HEENT: Atraumatic, normocephalic. No JVD noted. Cardiovascular: Normal S1 and S2. Normal rate and regular rhythm. No murmurs appreciated. No peripheral pitting edema noted. No JVD noted. Respiratory: No respiratory distress. Lungs are clear to auscultation bilaterally. No wheezing or crackles heard. Abdomen: Soft, nontender, nondistended. Skin: No rash. Warm to touch. Musculoskeletal: No gross injuries. Able to move all 4 extremities. Neuro: Alert and oriented x3. Sensation is intact throughout. Strength is 5/5 and symmetric. No focal neuro deficits. Psych: Normal affect and mood. Discharge Plan Plan Patient Disposition: HOME (Self Care) Patient condition on transfer: Stable Care Plan Goals: Take your pain medications as prescribed Follow-up with your cancer doctor Dr. Macias in the office We will prescribe a medication that stimulates appetite We will prescribe a medication for constipation Call your doctor or come back to the ED if you have worsening vomiting or difficulty breathing Follow-up with your PCP Prescriptions/Referrals Prescriptions/Med Rec: New sennosides-docusate sodium [Senna with Docusate Sodium] 8.6-50 mg tablet 1 tab-cap PO QDAY PRN (Reason: constipation) Qty: 20 0RF morphine 20 mg/5 mL (4 mg/mL) solution 10 mg PO Q6H MDD 50mg PRN (Reason: severe pain) Qty: 500 0RF dronabinol 2.5 mg capsule 2.5 mg PO BID PRN (Reason: nausea and vomiting/ appetite stimulant) Qty: 60 0RF Rx Instructions: administer before lunch and evening meal/dinner peg 3350-electrolytes [GaviLyte-G] 236-22.74-6.74 -5.86 gram recon soln 240 ml PO Q10M Qty: 4000 0RF Rx Instructions: until fecal effluent is clear Continued lisinopril 20 mg tablet 20 mg PO QDAY Patient Comments: TAKE 1 TABLET BY MOUTH EVERY DAY Discontinued hydrocodone-acetaminophen 5-325 mg tablet 1 tab PO Q6H PRN (Reason: Pain) Patient Comments: TAKE 1 TABLET BY MOUTH EVERY 6 HOURS NEEDED FOR 10 DAYS Referrals: Tete Gallardo MD [Primary Care Provider] - Patient/Caregiver Discharge Instructions Discharge Activity: activity as tolerated Other Discharge Activity Instructions:: [facility] , , at 9:30a.m. with Dr. Lopez [phone] Other Discharge Diet Instructions: Regular diet Education Materials: Nausea Vomit Control-Cancer Care, What Is Pancreatic Cancer?, Taking Opioid Medicines Print Language: Tunisian Stand Alone Forms: Brenda Award Info., Patient Portal Info Letter Discharge Order Discharge Orders: Discharge (Routine); Ordered 04/01/24 Ordered By: Cory Casey Quality Discharge Quality Measures none
[2024-04-05 06:24] LABS: CA 19-9 Antigen* 3855 U/mL (<34)
== END 2024-04-01 12:41 | disposition home or self-care (01) | DRG 436 ==
LOC: SERX 03-31 00:44 → SERHOLD 03-31 01:18 → S3SX 03-31 06:09
PROVIDERS: Radiology Therapeutic Radiology; Admitting Provider Internal Medicine; Emergency Provider Emergency Medicine; PCP Family Medicine; Visit Provider Student in an Organized Health Care Education/Training Program
DX: C25.9 Malignant neoplasm of pancreas, unspecified (principal); C78.7 Secondary malignant neoplasm of liver and intrahepatic bile duct; E87.1 Hypo-osmolality and hyponatremia; E87.8 Other disorders of electrolyte and fluid balance, not elsewhere classified; I10 Essential (primary) hypertension; M81.0 Age-related osteoporosis without current pathological fracture; D69.59 Other secondary thrombocytopenia; K59.03 Drug induced constipation; T40.2X5A Adverse effect of other opioids, initial encounter; T46.4X6A Underdosing of angiotensin-converting-enzyme inhibitors, initial encounter; Z91.128 Patient's intentional underdosing of medication regimen for other reason; Z87.891 Personal history of nicotine dependence; Z79.899 Other long term (current) drug therapy
CPT/HCPCS: 36415; 71045; 74018; 80048; 80053; 81001; 82378; 83690; 83735; 83880; 84484; 85025; 85610; 85730; 86301; 93005; 96361; 96374; 96375; 96376; 99285; J1650; J2270; J2405; J3490; J7030; Q0167; A9270

== ENCOUNTER 2024-04-03 05:58 | Observation (INO) | payer OTHER, MEDICAID, SELFPAY ==
[2024-04-03] VITALS (8 sets, daily range): BP systolic 93–143; BP diastolic 62–87; PULSE 88–116; RESP 16–27; TEMP 36.3–37.9; O2SAT 90–99; BMI 28.4; BMI 26.6
--- NOTE | 2024-04-03 06:10 | PC.NURSE ---
PT A/O BROUGHT INTO ER BY AMBULANCE FROM HOME FOR RIGHT UPPER ABDOMINAL PAIN THAT STARTED TONIGHT. PT REPORTS RECENT DIAGNOSIS OF PANCREATIC CANCER. STATES TOOK HIS MORPHINE TABLET FOR HIS PAIN THIS MORNING AND PAIN GOT WORSE AFTERWARDS.
[2024-04-03] MEDS: ONDANSETRON INJ 2 MG/ML INJ 2 ML 4 MG IV ×2 (06:42→07:25)
[2024-04-03] MEDS: HYDROmorphone INJ 2 MG/ML VIAL 1 MG IVP ×2 (06:43→07:26)
--- NOTE | 2024-04-03 06:55 | XR_ITS ---
Examination: CT abdomen with intravenous contrast CT pelvis with intravenous contrast 2-D coronal reconstructions 2-D sagittal reconstructions Date and time of exam:April 03, 2024 0754 hrs. Indications: Generalized abdominal pain several days, pancreatic carcinoma diagnosis Comparison: March 06, 2024. CTDI: vol (mGy) 9.65 DLP: (mGycm) 569 Technique: Multiple axial sections of the abdomen and pelvis have been obtained. 64 slice high-resolution scanner used. 3 mm axial sections have been obtained, post intravenous injection 60 cc Isovue-370 2-D sagittal, coronal reconstructions obtained. Low dose protocols were performed. One or more of the following dose reduction techniques were used; automated exposure control, adjustment of the mA and/or KV according to patient size, use of iterative reconstruction technique. Findings: Again noted indeterminate low-density liver lesions Liver irregular in contour Mild fluid subcapsular to the liver Contracted gallbladder Stable large hypodense mass pancreatic head No hydronephrosis No bowel obstruction Abundant stool in the right colon Normal appendix No diverticulitis Pelvic detail obscured by hip arthroplasties Severe osteopenia Impression: No change in carcinoma head of the pancreas
[2024-04-03] MEDS: SODIUM CHLORIDE 0.9% 1000 ML 1,000 ML 250 ML IV (07:24)
[2024-04-03 07:40] LABS: Basophils # (Auto) 0.1 Thou/mm3 (0.0-0.2); Basophils % (Auto) 0 % (0-2.5); Eosinophils # (Auto) 0.3 Thou/mm3 (0.0-0.5); Eosinophils % (Auto) 3 % (0-10); Hematocrit 41.8 % (41.0-53.0); Hemoglobin 14.4 g/dL (13.5-16.0); Immature Granulocytes % (Auto) 2 % (0-0); Immature Granulocytes Auto 0.23 Thou/mm3 (0.00-0.00); Lymphocytes # (Auto) 1.5 Thou/mm3 (1.0-4.8); Lymphocytes % (Auto) 12 % (10-50); Mean Corpuscular HGB Conc 34.4 g/dl (31.0-37.0); Mean Corpuscular Hemoglobin 31.8 pg (25.0-35.0); Mean Corpuscular Volume 92 fL (80-100); Monocytes # (Auto) 0.7 Thou/mm3 (0.0-0.8); Monocytes % (Auto) 6 % (0-12); Neutrophils % (Auto) 77 % (37-80); Nucleated Red Blood Cell % 0 /100 WBC (0); Platelet Count 200 Thou/mm3 (140-440); RDW Standard Deviation 47.3 fL (35.1-43.9); Red Blood Count 4.53 Miln/mm3 (4.50-5.90); White Blood Count 11.8 Thou/mm3 (3.8-10.6)
[2024-04-03 07:58] LABS: Alanine Aminotransferase 230 U/L (10-49); Albumin, Serum 4.2 gm/dL (3.4-4.8); Albumin/Globulin Ratio 1.1 (1.2-2.2); Alkaline Phosphatase 163 U/L (46-116); Anion Gap 15 (7-16); Aspartate Amino Transferase 185 U/L (0-34); BUN/Creatinine Ratio 16 Ratio (12-20); Bilirubin,Total 1.2 mg/dL (0.3-1.2); Blood Urea Nitrogen 13 mg/dL (9-23); Calcium 9.7 mg/dL (8.3-10.6); Calcium (Corrected) 9.7 mg/dL (8.5-10.1); Carbon Dioxide 26.5 mMol/L (20.0-31.0); Chloride 90 mMol/L (98-107); Creatinine (Component) 0.8 mg/dL (0.6-1.3); Estimated Creatinine Clearance 102.4 mL/min (>60); Globulin 3.8 gm/dL (2.3-3.5); Glucose 155 mg/dL (74-106); Lipase 25 U/L (12-53); Osmolality,Calculated 265 (275-295); Sodium 131 mMol/L (136-145); eGFR > 60 See Note
[2024-04-03 08:03] LABS: Potassium 2.6 mMol/L (3.4-5.1)
[2024-04-03] MEDS: POTASSIUM CHL 10 mEq IVPB 10 MEQ/100 ML BAG 100 MEQ IV ×6 (09:05→18:01)
--- NOTE | 2024-04-03 11:06 | EDNOTE_ITS ---
ED Abdominal Pain RME/HPI General Chief Complaint: Abdominal Pain Stated complaint: ABD PAIN Time seen by provider: 04/03/24 06:40 Arrival date/time: 04/03/24 05:58 RME / HPI RME / HPI narrative: Patient presented to the emergency department complaining of severe epigastric abdominal pain rating to the back. Patient has recently been diagnosed with pancreatic cancer based on biopsy and CAT scan. Also been constipated for the last couple of days. Patient is taking hydrocodone and morphine at home with no relief. Last meal was about 3 months ago. He has been on liquid diet. Given that he does not have any appetite. No fever. No vomiting. Decreased urination. The patient needs to follow-up with our oncology clinic here. Related Data Home Medications ?Medication ?Instructions ?Recorded ?Confirmed lisinopril 20 mg tablet 20 mg PO QDAY 12/24/22 03/31/24 Previous Rx's ?Medication ?Instructions ?Recorded dronabinol 2.5 mg capsule 2.5 mg PO BID PRN nausea and 04/01/24 vomiting/ appetite stimulant #60 caps morphine 20 mg/5 mL (4 mg/mL) oral 10 mg (2.5 mL) PO Q6H PRN severe 04/01/24 solution pain #500 mL peg 3350-electrolytes 236 240 ml PO Q10M #4,000 mL 04/01/24 gram-22.74 gram-6.74 gram-5.86 gram solution (GaviLyte-G) sennosides 8.6 mg-docusate sodium 1 tab-cap PO QDAY PRN constipation 04/01/24 50 mg tablet (Senna with Docusate #20 tabs Sodium) Allergies Allergy/AdvReac Type Severity Reaction Status Date / Time No Known Allergies Allergy Verified 12/25/22 11:26 Review of Systems Review of Systems Narrative Review of Systems: REVIEW OF SYSTEM: GEN:? negative except mentioned in HPI HEENT:? negative except mentioned in HPI NECK:? negative except mentioned in HPI PULM:? negative except mentioned in HPI CARD:? negative except mentioned in HPI GI:? negative except mentioned in HPI MUSCULO/SKET: negative except mentioned in HPI SKIN:? negative except mentioned in HPI NEURO:? negative except mentioned in HPI PSYCH:? negative except mentioned in HPI Past Medical History Past Medical History NEUROLOGIC: Negative Neurological Disorders or Seizures CARDIAC: Positive Cardiac Disorders and Hypertension; Negative Hypercholesterolemia or Congestive Heart Failure RESPIRATORY: Positive Asthma; Negative Chronic Obstructive Pulmonary Disease (COPD) GASTROINTESTINAL: Positive Gastrointestinal Disorders GENITOURINARY: Negative Genitourinary Disorders or Renal Disease MUSCULOSKELETAL: Positive Musculoskeletal Disorders, Arthritis and Osteoporosis ENDOCRINE: Negative Endocrine Disorders, Diabetes Mellitus Type 1 or Diabetes Mellitus Type 2 HEMATOLOGIC: Negative Blood Disorders or Sickle Cell Disease OTHER HISTORY: Positive Chicken Pox, Measles, Mumps and Cancer (pancreatic cancer); Negative Hospitalization, Falls, Blood Transfusions or Anesthesia Reactions Surgical History SURGICAL: Negative Abdominal Surgery, Nephrectomy or Joint Replacement Social History SMOKING STATUS: Never smoker SUBSTANCE USE: does not use ED Exam Narrative Physical exam: Aaox4. No acute distress O2 saturation is normal Heent:? perra. Eomi. No icteric. Neck: full rom.? No mass.? No jvd.? No lymphadenopathy Lungs:? clear, full, equal Heart:? s1s2.? Rrr.? No murmur, gallop or rub. Abd: soft, nondistended, tender epigastrium, no mass, no rebound or guarding, no flank tender.? No incarcerated? hernia Ext:? full rom.? No deformity.? Normal csm. Neuro:?? intact cn2 to 12.? No facial droop.? No slurred speech.? No focal deficit.? Moves all 4ext Skin:? no rash.? No cellulitis.? No lesion.? No laceration Psychiatrical: no suicidal.? No homicidal.? No delusion.? No hallucinating Course Quality Measures none Orders Category Date Time Status CT Screening NOW Care 04/03/24 06:[address] abdomen pelvis w con Stat Exams 04/03/24 06:55 Completed CBC Stat Lab 04/03/24 06:05 Completed CMP [Comprehensive Metabolic Panel] Stat Lab 04/03/24 06:05 Completed Lipase Stat Lab 04/03/24 06:05 Completed UA, C/S IF [Urinalysis, C/S if Indicated] Stat Lab 04/03/24 06:56 Ordered HYDROmorphone INJ [Dilaudid Inj] Med 04/03/24 06:37 Discontinued 1 mg IVP X1 ONE HYDROmorphone INJ [Dilaudid Inj] Med 04/03/24 06:55 Discontinued 1 mg IVP X1 ONE Ondansetron Inj [Zofran Inj] Med 04/03/24 06:37 Discontinued 4 mg IV X1 ONE Ondansetron Inj [Zofran Inj] Med 04/03/24 06:55 Discontinued 4 mg IV X1 ONE POTASSIUM CHL 10 mEq IVPB [Kcl Ivpb] Med 04/03/24 08:12 Discontinued 10 meq in 100 ml IV Q1H POTASSIUM CHL 10 mEq IVPB [Kcl Ivpb] Med 04/03/24 10:47 Active 10 meq in 100 ml IV X1 Sodium Chloride 0.9% 1000 ml [Ns] 1,000 ml Med 04/03/24 06:56 Discontinued IV 250 mls/hr Vital Signs Vital signs: Vital Signs Temperature 97.9 F 04/03/24 06:00 Pulse Rate 101 H 04/03/24 06:00 Respiratory Rate 17 04/03/24 06:00 Blood Pressure 143/82 H 04/03/24 06:00 Pulse Oximetry (%) 95 04/03/24 06:00 Oxygen Delivery Method Room Air 04/03/24 06:00 Abdominal Pain MDM MDM Narrative MDM Narrative:: WBC count of 12,000. Potassium of 2.6. Liver enzymes slightly elevated but has been elevated before 2. UA is pending. Lipase is negative. [facility] [address] [id number] [place] Imaging Report Signed Patient: HUSAM SANCHEZ [facility]. Record#: [id number] Birthdate: 1955 Age/Sex: 68 / M Location: [facility] Attending Dr: Ordering Physician: Cj Katz MD Date of Service: 04/03/24 Procedure(s): CT abdomen pelvis w con Accession Number(s): [id number] cc: Ronal Arguello MD; Cj Katz MD; Tete Gallardo MD~ Examination: CT abdomen with intravenous contrast CT pelvis with intravenous contrast 2-D coronal reconstructions 2-D sagittal reconstructions Date and time of exam:April 03, 2024 0754 hrs. Indications: Generalized abdominal pain several days, pancreatic carcinoma diagnosis Comparison: March 06, 2024. CTDI: vol (mGy) 9.65 DLP: (mGycm) 569 Technique: Multiple axial sections of the abdomen and pelvis have been obtained. 64 slice high-resolution scanner used. 3 mm axial sections have been obtained, post intravenous injection 60 cc Isovue-370 2-D sagittal, coronal reconstructions obtained. Low dose protocols were performed. One or more of the following dose reduction techniques were used; automated exposure control, adjustment of the mA and/or KV according to patient size, use of iterative reconstruction technique. Findings: Again noted indeterminate low-density liver lesions Liver irregular in contour Mild fluid subcapsular to the liver Contracted gallbladder Stable large hypodense mass pancreatic head No hydronephrosis No bowel obstruction Abundant stool in the right colon Normal appendix No diverticulitis Pelvic detail obscured by hip arthroplasties Severe osteopenia Impression: No change in carcinoma head of the pancreas Dictated By: Ronal Arguello MD Signed By: <Electronically signed by Ronal Arguello MD in OV> 04/03/24830 DD/ 8 TD/TT: 04/03/24828 In the emergency department, the patient receiving IV fluid, IV painkiller. And potassium by IV. 11 AM, I spoke to and discussed with Dr. peralta, resident of Dr. Azalia Sevilla, attending induction brazer. He agreed to admit the patient for further evaluation and treatment. Thank you very much Diagnosis: Pancreatic cancer with possible metastasis to the liver. Failure to thrive Intractable abdominal pain. Hypokalemia Condition: Stable for admit Patient data External records reviewed:: [facility] previous records Clinical information provided by:: patient Social determinants that could affect healthcare access:: none Patient has the following chronic illnesses:: Pancreatic cancer How is presenting disease/condition affected by chronic disease/condition?: caused by Evaluation data The following diagnostics were reviewed and interpreted by me:: lab results and radiology exam(s) Lab and/or radiology exams considered but not ordered:: None Interpretation Summary: See MDM Medications / Prescriptions Medications or Prescriptions considered but not ordered:: None. Medication administrations:: Medication Administration History Potassium Chloride (Kcl Ivpb) 10 meq in 100 mls @ 100 mls/hr IV X1 ONE Stop: 04/03/24 11:46 Discontinued Medications Hydromorphone HCl (Hydromorphone Inj 2 Mg/Ml Vial) 1 mg IVP X1 ONE Stop: 04/03/24 06:38 Last Admin: 04/03/24 06:43 Dose: 1 mg Documented By: CAPRICE Hydromorphone HCl (Hydromorphone Inj 2 Mg/Ml Vial) 1 mg IVP X1 ONE Stop: 04/03/24 06:56 Last Admin: 04/03/24 07:26 Dose: 1 mg Documented By: CJ Sodium Chloride (Ns) 1,000 mls @ 250 mls/hr IV .Q4H ONE Stop: 04/03/24 10:55 Last Admin: 04/03/24 07:24 Dose: 250 mls/hr Documented By: CJ Potassium Chloride (Kcl Ivpb) 10 meq in 100 mls @ 100 mls/hr IV Q1H STA Stop: 04/03/24 09:11 Last Infusion: 04/03/24 10:44 Dose: Infused Documented By: Admin: 04/03/24 09:05 Dose: 100 mls/hr Documented By: Ondansetron HCl (Ondansetron Inj 2 Mg/Ml Inj 2 Ml) 4 mg IV X1 ONE; Protocol Stop: 04/03/24 06:38 Last Admin: 04/03/24 06:42 Dose: 4 mg Documented By: CAPRICE Ondansetron HCl (Ondansetron Inj 2 Mg/Ml Inj 2 Ml) 4 mg IV X1 ONE; Protocol Stop: 04/03/24 06:56 Last Admin: 04/03/24 07:25 Dose: 4 mg Documented By: CJ See above Consultations Consultation(s) initiated? (list below): No Diagnosis Differential diagnosis abdominal pain: abdominal pain, constipation, gastroenteritis, pancreatitis and small bowel obstruction Most likely diagnosis given after review of the tests above:: Pancreatic cancer with metastasis to the liver Admission Indicated Admission indicated?: indicated Admission Request Was there a request for admission?: Yes Admission Attestation Admission request attestation: Discussed case with [] from Hospitalist service regarding admission. Discussed patients ED course, exam findings, labs, and radiology results. The Hospitalist [agrees,declines] to accept the patient for admission. Disposition Plan Disposition Plan: Admit Discharge Plan Plan Patient Disposition: Admit Acute Care w/in Hospital Disposition Comment: Stable for admit Prescriptions/Referrals Prescriptions/Med Rec: No Action sennosides-docusate sodium [Senna with Docusate Sodium] 8.6-50 mg tablet 1 tab-cap PO QDAY PRN (Reason: constipation) Qty: 20 0RF morphine 20 mg/5 mL (4 mg/mL) solution 10 mg PO Q6H MDD 50mg PRN (Reason: severe pain) Qty: 500 0RF dronabinol 2.5 mg capsule 2.5 mg PO BID PRN (Reason: nausea and vomiting/ appetite stimulant) Qty: 60 0RF Rx Instructions: administer before lunch and evening meal/dinner peg 3350-electrolytes [GaviLyte-G] 236-22.74-6.74 -5.86 gram recon soln 240 ml PO Q10M Qty: 4000 0RF Rx Instructions: until fecal effluent is clear lisinopril 20 mg tablet 20 mg PO QDAY Patient Comments: TAKE 1 TABLET BY MOUTH EVERY DAY Referrals: Tete Gallardo MD [Primary Care Provider] - In 1 week Problem List Clinical Impression: Adenocarcinoma of pancreas, Abdominal pain, Intractable abdominal pain, Hypokalemia Patient/Caregiver Discharge Instructions Print Language: Korean Stand Alone Forms: Brenda Award Info., Patient Portal Info Letter
[2024-04-03] MEDS: HYDROmorphone INJ 2 MG/ML VIAL 1.5 MG IVP ×2 (13:01→19:40)
--- NOTE | 2024-04-03 14:43 | ESHP_ITS ---
<Statement entered by Norberto Jacques MD - 04/19/24 09:28> I reviewed above note and agree with findings and plans. I have also personally examined the patient with medicine team and went over assessment and plan with medical team including chemical engineering intern and resident physician. Documentation for date of: 04/03/24 HPI History of Present Illness History of present illness: 68-year-old male with a past medical history of hypertension and recently diagnosed pancreatic adenocarcinoma who presents to the ED on 04/03/2024 for recurrent nausea, vomiting, abdominal pain, and back pain radiating to the right side of his middle chest area, radiated 10 out of 10 on pain. Patient was recently seen in the ED for similar symptoms but has been experiencing more nausea and vomiting at this time. Says he takes Vidor for his pain, but makes him very constipated and does not help him that much. Says he has not had a bowel movement in a several days. Last seen by oncologist recently, Dr. Macias, has had talk in regards to possible radiation. HPI is limited as pt is experiencing a lot of pain. ED course: Patient was in ED tachycardic with a rate of 101, blood pressure of 143/82. Pt was worked up and was found to have a sodium of 131, potassium 2.6, white count of 11.8, AST ALT 185 and 230 respectively, and BUN/creatinine [address] abdomen showed no change in carcinoma of pancreas. Patient was given Dilaudid 1 mg x 2, and was given potassium 20 mill equivalents. Medicine was consulted and patient was brought to the floor PMHx: As above Meds: Vidor, Lisinopril Dronabinol, Lactulose, Docusate Allergies: NKDA Family Hx: N/A Social Hx: Does not drink, or smoke currently. Used to smoke in the past ~for 10 years Review of Systems Review of Systems Narrative Review of Systems: Constitutional: No fever, chills, fatigue, weakness, HEENT: No eye pain, vision loss, ear pain, hearing loss, dysphagia, Cardiovascular: No chest pain, palpitations, edema, pain with walking Respiratory: No cough, shortness of breath, wheezing GI: + NV, + abdominal pain, + constipation, no blood in stool, loss of appetite, heartburn Extremities: No presence of pitting edema MSK: + back pain, joint pain, joint swelling Neuro: No dizziness, numbness, weakness, headaches, seizures, tremors Psych: No anxiety, depression Exam Vital Signs Temp Pulse Resp BP Pulse Ox O2 Del Method O2 Flow Rate 97.4 F 116 H 26 H 125/78 95 Room Air 2 04/03/24 12:40 04/03/24 12:40 04/03/24 12:40 04/03/24 12:40 04/03/24 12:40 04/03/24 08:43 04/03/24 12:40 Narrative Exam General: AAOx3, in mild distress HEENT: Moist mucous membranes, conjunctiva clear, EOMI, PERRLA, Cardiovascular: S1, S2, radial pulses +2 bilat, RRR Pulmonary: CTAB bilat no cough, no wheezing GI: No tenderness to light or deep palpitation, no guarding, rigidity, rebound tenderness or distension Extremities: No presence of trace or pitting edema in lower extremities bilaterally, dorsalis pedis pulses +2 bilaterally Back: Some tenderness upon palpitation in mid thoracic spine, some presence of skin changes Neuro: AAOx3, limited exam as pt is experiencing some pain Psych: Good judgement, thought and behavior. Cooperative Results: Labs 04/04/24 05:57 04/04/24 05:57 Labs: Short CBC 04/03/24 Range/Units 06:05 WBC 11.8 H (3.8-10.6) Thou/mm3 Hgb 14.4 (13.5-16.0) g/dL Hct 41.8 (41.0-53.0) % Plt Count 200 D (140-440) Thou/mm3 BMP 04/03/24 06:05 Sodium 131 L Potassium 2.6 L* D Chloride 90 L Carbon Dioxide 26.5 BUN 13 Creatinine 0.8 Glucose 155 H D Calcium 9.7 Liver Function 04/03/24 Range/Units 06:05 Total Bilirubin 1.2 (0.3-1.2) mg/dL AST 185 H (0-34) U/L ALT 230 H (10-49) U/L Alkaline Phosphatase 163 H (46-116) U/L Albumin 4.2 (3.4-4.8) gm/dL Quality Measures Quality Measures none Advance care planning discussed with:: patient Medications Home Medications and Allergies Home Medications ?Medication ?Instructions ?Recorded ?Confirmed ?Type lisinopril 20 mg tablet 20 mg PO QDAY 12/24/22 03/31/24 History Allergies Allergy/AdvReac Type Severity Reaction Status Date / Time No Known Allergies Allergy Verified 12/25/22 11:26 Visit Medications Acetaminophen (Acetaminophen 325 Mg Tablet) 650 mg PO Q6H PRN PRN Reason: Fever >101.5 or pain 1-3 Stop: 05/03/24 12:09 Docusate Sodium (Docusate Sod 100 Mg Capsule) 100 mg PO QDAY [facility]; Protocol Stop: 05/03/24 12:29 Last Admin: 04/03/24 14:05 Dose: Not Given Enoxaparin Sodium (Enoxaparin Sod Inj 40 Mg/0.4 Ml Syringe) 40 mg SC QDAY [facility] Stop: 04/18/24 08:59 Hydromorphone HCl (Hydromorphone Inj 2 Mg/Ml Vial) 1.5 mg IVP Q4H PRN PRN Reason: for breakthrough pain Stop: 04/08/24 12:16 Promethazine HCl 25 mg/ Sodium (Chloride) 51 mls @ 2.5 mls/min IV Q6HR PRN PRN Reason: NAUSEA OR VOMITING Stop: 05/03/24 12:23 Potassium Chloride (Kcl Ivpb) 10 meq in 100 mls @ 100 mls/hr IV Q1H [facility] Stop: 04/03/24 16:26 Last Admin: 04/03/24 14:20 Dose: 100 mls/hr Lactulose (Lactulose Syrup 20 Gm/30 Ml Udc) 10 gm PO QDAY [facility]; Protocol Stop: 05/03/24 12:29 Last Admin: 04/03/24 14:05 Dose: Not Given Morphine Sulfate (Morphine Sulf Inj 10 Mg/Ml Vial) 6 mg IVP Q4HR PRN PRN Reason: PAIN SCALE 7-10 (Severe Stop: 04/08/24 12:16 Naloxone HCl (Naloxone Inj 1 Mg/Ml Syringe 2 Ml) 2 mg IV Q3M PRN PRN Reason: OPIATE REVERSAL Stop: 05/03/24 12:21 Ondansetron HCl (Ondansetron Inj 2 Mg/Ml Inj 2 Ml) 4 mg IV Q6H PRN; Protocol PRN Reason: NAUSEA OR VOMITING Stop: 05/03/24 12:09 Pantoprazole Sodium (Pantoprazole Inj 40 Mg Vial) 40 mg IVP QDAY NIKKO Stop: 05/04/24 08:59 Discontinued Medications Hydromorphone HCl (Hydromorphone Inj 2 Mg/Ml Vial) 1 mg IVP X1 ONE Stop: 04/03/24 06:38 Last Admin: 04/03/24 06:43 Dose: 1 mg Hydromorphone HCl (Hydromorphone Inj 2 Mg/Ml Vial) 1 mg IVP X1 ONE Stop: 04/03/24 06:56 Last Admin: 04/03/24 07:26 Dose: 1 mg Hydromorphone HCl (Hydromorphone Inj 2 Mg/Ml Vial) 1 mg IVP Q4H PRN PRN Reason: for breakthrough pain Stop: 04/08/24 12:16 Hydromorphone HCl (Hydromorphone Inj 2 Mg/Ml Vial) 1.5 mg IVP X1 ONE Stop: 04/03/24 12:18 Last Admin: 04/03/24 13:01 Dose: 1.5 mg Sodium Chloride (Ns) 1,000 mls @ 250 mls/hr IV .Q4H ONE Stop: 04/03/24 10:55 Last Infusion: 04/03/24 11:24 Dose: Infused Potassium Chloride (Kcl Ivpb) 10 meq in 100 mls @ 100 mls/hr IV Q1H STA Stop: 04/03/24 09:11 Last Infusion: 04/03/24 10:44 Dose: Infused Potassium Chloride (Kcl Ivpb) 10 meq in 100 mls @ 100 mls/hr IV X1 ONE Stop: 04/03/24 11:46 Last Infusion: 04/03/24 12:06 Dose: Infused Promethazine HCl 25 mg/ Sodium (Chloride) 51 mls @ 2.5 mls/min IV Q6HR PRN PRN Reason: NAUSEA OR VOMITING Stop: 05/03/24 12:23 Morphine Sulfate (Morphine Sulf Inj 10 Mg/Ml Vial) 6 mg IVP Q2H PRN PRN Reason: PAIN SCALE 7-10 (Severe Stop: 04/08/24 12:16 Ondansetron HCl (Ondansetron Inj 2 Mg/Ml Inj 2 Ml) 4 mg IV X1 ONE; Protocol Stop: 04/03/24 06:38 Last Admin: 04/03/24 06:42 Dose: 4 mg Ondansetron HCl (Ondansetron Inj 2 Mg/Ml Inj 2 Ml) 4 mg IV X1 ONE; Protocol Stop: 04/03/24 06:56 Last Admin: 04/03/24 07:25 Dose: 4 mg Assessment & Plan Plan 68-year-old male with a past medical history of hypertension and recently diagnosed pancreatic adenocarcinoma who is currently admitted on 04/03/2024 for recurrent nausea, vomiting, abdominal pain, and back pain. #Failure to thrive #Stage IV pancreatic adenocarcinoma with liver mets #Intractable pain secondary to above #Intractable nausea and vomiting secondary to above Patient recently diagnosed with pancreatic adenocarcinoma at [facility] a couple weeks ago Was recently discharged from [facility] with recommendation to follow-up with Dr. Macias outpatient Patient pain is worsening, takes Vidor at home Patient will need antiemetics and multimodal pain regimen Will need to discuss with patient in terms of options moving forward and possible hospice Plan: ?Multimodal pain management with scheduled morphine and as needed Dilaudid for breakthrough ?Zofran as needed ?Promethazine PRN ?Narcan ordered in case of intoxication #Hypokalemia secondary to #GI losses Related to as above Patient cannot tolerate p.o., will likely replete with IV Plan: ?Replete as needed with IV ?Follow-up renal panel #Opioid-induced constipation Patient is on opioids at home Will see patient proved with bowel regimen, patient would like anticonstipation medications per rectum Will consider Movantik if patient does not improve Plan: ?Dulcolax per rectum ?Colace p.o. #History of hypertension #Tachycardia Tachycardia likely due to pain Plan: ? Will hold on resuming home blood pressure medicines at this time #Health Maintenance Disposition: MedTele/Obs DVT prophylaxis: Lovenox GI prophylaxis: Protonix Diet: Regular CODE STATUS:DNR Patient seen and care discussed with my senior resident, Dr. Finley , and my attending physician, Dr. Georgie Carroll, PGY-1 Senior resident attestation: Patient evaluated and examined at the bedside, plan of care discussed with rest of the team including my attending physician, except as noted. Patient is 62-year-old male, recently diagnosed with pancreatic adenocarcinoma from [facility], admitted for severe pain and nausea vomiting, patient was recently discharged from the hospital, followed by Dr. Colleen ojeda radiation oncologist during previous visit, pending insurance authorization for outpatient appointment at [facility] for palliative radiation. Patient was prescribed oral morphine, was unable to tolerate due to intractable nausea and vomiting. Patient admitted to medical floor for IV analgesia and IV hydration. Limited H&P due to patient being in severe distress and pain. #Pancreatic cancer #Failure to thrive #Intractable nausea vomiting #IV analgesia?patient was prescribed oral morphine sulfate on discharge, required IV Dilaudid for adequate pain control, will add Dilaudid 1.5 mg every 4 hours for breakthrough pain, morphine 6 mg every 4 hourly for severe pain and morphine 4 mg every 4 hours for moderate pain. #Constipation?patient reported not having a good bowel movement for the past 1 month, will consider naloxegol/Movantik if patient does not have a bowel movement. Malia PGY2
[2024-04-03] MEDS: MORPHINE SULF INJ 10 MG/ML VIAL 4 MG IVP (15:54)
[2024-04-03 17:52] LABS: Albumin, Serum 3.3 gm/dL (3.4-4.8); Anion Gap 10 (7-16); BUN/Creatinine Ratio 20 Ratio (12-20); Blood Urea Nitrogen 16 mg/dL (9-23); Calcium 8.6 mg/dL (8.3-10.6); Calcium (Corrected) 9.2 mg/dL (8.5-10.1); Carbon Dioxide 24.7 mMol/L (20.0-31.0); Chloride 95 mMol/L (98-107); Creatinine (Component) 0.8 mg/dL (0.6-1.3); Estimated Creatinine Clearance 93.8 mL/min (>60); Glucose 147 mg/dL (74-106); Osmolality,Calculated 265 (275-295); Phosphorous 3.4 mg/dL (2.4-5.1); Potassium 3.6 mMol/L (3.4-5.1); Sodium 130 mMol/L (136-145); eGFR > 60 See Note
--- NOTE | 2024-04-03 18:00 | PC.NURSE ---
offered enema, Pt. refuse at this time.
[2024-04-03 18:04] LABS: Collection Type, Urine Clean Catch; WBC,Urine 0 /hpf (0-5)
[2024-04-03 18:15] LABS: Bilirubin,Urine Negative (Negative); Blood,Urine Trace (Negative); Clarity,Urine Clear (Clear/Hazy); Color,Urine Yellow (Lt Yel-Yel); Culture Indicated,Urine Not Indicated; Glucose, Urine Negative (Negative); Ketones,Urine 1+ (Negative); Leukocyte Esterase,Urine Negative (Negative); Nitrite,Urine Negative (Negative); PH,Urine 6.5 (5.0-7.0); Protein,Urine 1+ (Neg - Trace); RBC,Urine 11 /hpf (0-3); Specific Gravity,Urine 1.035 (1.001-1.035); Squamous Epithelial Cell,Urine < 1 /hpf (0-5)
[2024-04-03] MEDS: SIMETHICONE 80 MG CHEW PO (18:19)
[2024-04-03] MEDS: MORPHINE SULF INJ 10 MG/ML VIAL 6 MG IVP (22:09)
[2024-04-04] VITALS (16 sets, daily range): BP systolic 96–132; BP diastolic 67–90; PULSE 59–226; RESP 16–24; TEMP 36–36.8; O2SAT 91–98; BMI 26.6
[2024-04-04] MEDS: HYDROmorphone INJ 2 MG/ML VIAL 1.5 MG IVP ×4 (00:22→23:12)
[2024-04-04] MEDS: MORPHINE SULF INJ 10 MG/ML VIAL 6 MG IVP ×3 (03:39→19:48)
[2024-04-04 06:24] LABS: Basophils % (Auto) 0 % (0-2.5); Eosinophils # (Auto) 0.1 Thou/mm3 (0.0-0.5); Eosinophils % (Auto) 1 % (0-10); Hematocrit 38.2 % (41.0-53.0); Hemoglobin 13.4 g/dL (13.5-16.0); Immature Granulocytes % (Auto) 2 % (0-0); Immature Granulocytes Auto 0.28 Thou/mm3 (0.00-0.00); Lymphocytes # (Auto) 0.9 Thou/mm3 (1.0-4.8); Lymphocytes % (Auto) 7 % (10-50); Mean Corpuscular HGB Conc 35.1 g/dl (31.0-37.0); Mean Corpuscular Hemoglobin 32.1 pg (25.0-35.0); Mean Corpuscular Volume 91 fL (80-100); Monocytes # (Auto) 0.7 Thou/mm3 (0.0-0.8); Monocytes % (Auto) 6 % (0-12); Neutrophils # (Auto) 11.3 Thou/mm3 (1.8-7.7); Neutrophils % (Auto) 85 % (37-80); Nucleated Red Blood Cell % 0 /100 WBC (0); Platelet Count 196 Thou/mm3 (140-440); RDW Standard Deviation 47.6 fL (35.1-43.9); Red Blood Count 4.18 Miln/mm3 (4.50-5.90); White Blood Count 13.3 Thou/mm3 (3.8-10.6)
[2024-04-04 06:50] LABS: Alanine Aminotransferase 132 U/L (10-49); Albumin, Serum 3.4 gm/dL (3.4-4.8); Albumin/Globulin Ratio 1.1 (1.2-2.2); Alkaline Phosphatase 96 U/L (46-116); Anion Gap 8 (7-16); Aspartate Amino Transferase 55 U/L (0-34); BUN/Creatinine Ratio 29 Ratio (12-20); Bilirubin,Total 2.5 mg/dL (0.3-1.2); Blood Urea Nitrogen 20 mg/dL (9-23); Calcium 8.9 mg/dL (8.3-10.6); Calcium (Corrected) 9.4 mg/dL (8.5-10.1); Carbon Dioxide 24.7 mMol/L (20.0-31.0); Chloride 96 mMol/L (98-107); Creatinine (Component) 0.7 mg/dL (0.6-1.3); Estimated Creatinine Clearance 107.2 mL/min (>60); Globulin 3.1 gm/dL (2.3-3.5); Glucose 149 mg/dL (74-106); Magnesium 1.9 mg/dL (1.6-2.6); Osmolality,Calculated 264 (275-295); Phosphorous 2.7 mg/dL (2.4-5.1); Potassium 3.7 mMol/L (3.4-5.1); Sodium 129 mMol/L (136-145); Total Protein 6.5 gm/dL (5.7-8.2); eGFR > 60 See Note
[2024-04-04 07:01] LABS: INR 1.7 (0.9-1.3); Partial Thromboplastin Time 37.5 Seconds (22.0-36.0); Prothrombin Time 17.6 Seconds (9.0-12.2)
[2024-04-04] MEDS: PANTOPRAZOLE INJ 40 MG VIAL IVP (08:48)
[2024-04-04] MEDS: LACTULOSE SYRUP 20 GM/30 ML UDC 10 GM PO (08:49)
[2024-04-04] MEDS: ENOXAPARIN SOD INJ 40 MG/0.4 ML SYRINGE SC (08:49)
[2024-04-04] MEDS: SIMETHICONE 80 MG CHEW PO (09:04)
--- NOTE | 2024-04-04 12:40 | EKG_ITS ---
[facility] Test Date: 2024-04-04 Pat Name: HUSAM SANCHEZ [facility] Gender: Male Soil And Plant Scientist: GEORGETTE : 1955 Requested By: Ignacio Caldwell Order Number: [id number] Reading MD: Ignacio Caldwell Measurements Intervals [place] Rate: 184 P: OK: QRS: 10 QRSD: 94 T: 82 QT: 243 QTc: 426 Interpretive Statements ATRIAL FIBRILLATION WITH RAPID VENTRICULAR RESPONSE POSSIBLE RIGHT VENTRICULAR CONDUCTION DELAY [RSR (QR) IN V1/V2] NONSPECIFIC ST & T-WAVE ABNORMALITY ABNORMAL RHYTHM ECG Compared to ECG 03/30/2024 20:03:30 T-wave abnormality now present Sinus rhythm no longer present Sinus arrhythmia no longer present /store/S0/[id number]/[id number].pdf
[2024-04-04] MEDS: METOPROLOL TARTRATE INJ 1 MG/ML AMP 5 ML 5 MG IVP (12:47)
[2024-04-04] MEDS: DIGOXIN INJ 0.25 MG/ML AMP 2 ML IVP (13:17)
--- NOTE | 2024-04-04 13:24 | PC.NURSE ---
mining engineering technologist notified Nurse Emergency Management Specialist is pushing digoxin
--- NOTE | 2024-04-04 13:28 | PC.NURSE ---
Rapid Response called at 1238 for heart rate in 200s with SOB after trip to the bathroom. most recent 208bmp. pt is alert and oriented, no chest pain and once back to bed, SOB improved. EKG ordered, metoprolol and digoxin ordered and administered. pt is DNR DNI. Hospitalist team discussed goals of care with patient, nephew and grandnephew at bedside. After much consideration, POLST signed with Attending. No strict comfort measures initiated at this time, but patient does plan to transition to hospice once home. Dr Macias in to see patient at this time as well with recommendations for hospice care.
[2024-04-04] MEDS: Magnesium Sulfate 4 GM Ivpb 4 GM/50 ML BAG IV (13:45)
[2024-04-04] MEDS: NALOXEGOL OXALATE 25 MG TABLET (NON-FORMULARY) PO (13:45)
[2024-04-04] MEDS: fentaNYL 50 mCg TRANSDERMAL PATCH TOP (14:59)
--- NOTE | 2024-04-04 15:00 | PC.NURSE ---
Received orders placed by Dr Carroll for amiodarone drip and bolus at 1432 followed by discharge orders from Dr Bergman with Hospice Referral at 1444. Spoke with doctor Pacheco to clarify orders and plan of care. Told that patient is to be discharged on hospice as soon as set up by Malka SMITH and disregard medication orders. Patient and family on board with discharge plans so all equipment and services be available.
--- NOTE | 2024-04-04 15:04 | ESCONSULT_ITS ---
HPI Data of Consult Requesting Physician: Norberto Jacques MD Primary Care Provider: Tete Gallardo MD Consult Narrative Reason for consult: Stage IV pancreatic CA History of present illness: Patient with diagnosis of pancreatic CA with liver mets diagnosis made today at [facility] earlier this month. Was admitted last week for pain [id number] and was scheduled to be seen as an outpatient at [facility] but was readmitted with severe abdominal pain nausea vomiting yesterday. CT 04/03/2024 shows liver lesions with large hypodense mass pancreatic head. Abundant stool in the right colon. Clinically pain looks significantly worse with abdominal distention and complaints of pain. WBC 1216 2413.3 WBC hemoglobin 13.4 platelets 1 96,000. Bilirubin has risen to 2.5 with elevated AST ALT.also noted to be hypokalemic at 2.6 improved with electrolyte replacement with pain improved with parenteral medications. cc:: cc: Norberto Jacques MD Past Medical History Family History OTHER FAMILY HX: No family history of cancer Past Medical History Comments PMH COMMENT: Hypertension arthritis osteoporosis Meds Home Medications and Allergies Allergies Allergy/AdvReac Type Severity Reaction Status Date / Time No Known Allergies Allergy Verified 12/25/22 11:26 Exam Vital Signs Temp Pulse Resp BP Pulse Ox O2 Del Method O2 Flow Rate 97.2 F 186 H 17 98/70 98 Nasal Cannula 6 04/04/24 12:00 04/04/24 13:17 04/04/24 12:00 04/04/24 13:17 04/04/24 12:00 04/04/24 12:00 04/04/24 12:00 Narrative Exam Appearing quite will with distended abdomen. Results Labs 04/04/24 05:57 04/04/24 05:57 Labs: Short CBC 04/04/24 Range/Units 05:57 WBC 13.3 H (3.8-10.6) Thou/mm3 Hgb 13.4 L (13.5-16.0) g/dL Hct 38.2 L (41.0-53.0) % Plt Count 196 (140-440) Thou/mm3 BMP 04/03/24 04/04/24 16:48 05:57 Sodium 130 L 129 L Potassium 3.6 D 3.7 Chloride 95 L 96 L Carbon Dioxide 24.7 24.7 BUN 16 20 Creatinine 0.8 0.7 Glucose 147 H 149 H Calcium 8.6 8.9 Liver Function 04/03/24 04/04/24 Range/Units 16:48 05:57 Total Bilirubin 2.5 H D (0.3-1.2) mg/dL AST 55 H (0-34) U/L ALT 132 H (10-49) U/L Alkaline Phosphatase 96 D (46-116) U/L Albumin 3.3 L D 3.4 (3.4-4.8) gm/dL Urine 04/03/24 Range/Units 17:22 Urine Color Yellow (Lt Yel-Yel) Urine Clarity Clear (Clear/Hazy) Urine pH 6.5 (5.0-7.0) Ur Specific [place] 1.035 (1.001-1.035) Urine Protein 1+ A (Neg - Trace) Urine Glucose (UA) Negative (Negative) Assessment and Plan Additional Assessment & Plan Additional Plan: 1. Stage IV CA of the pancreas with liver mets. 2. Pain nausea vomiting constipation causing discomfort. 3. Spoke to patient about planned cancer therapy versus hospice; patient opts for hospice care. 4. Improved pain control bowel regimen management via hospice will be arranged.
--- NOTE | 2024-04-04 16:05 | EVENTNT_ITS ---
<Statement entered by Norberto Jacques MD - 04/19/24 09:38> I reviewed above note and agree with findings and plans. I have also personally examined the patient with medicine team and went over assessment and plan with medical team including commissioner of internal revenue and resident physician. Documentation for date of: 04/04/24 Event Note Event Note: At about 1230, rapid response called for patient as patient was currently heart rate of 200s, irregular rhythm seen on telemetry. Patient had time was not symptomatic with chest pain, or shortness of breath but did say that his heart rate started to elevate as he got up to use the restroom. Patient's blood pressure at the time was in the 110s systolic. Patient was given 5 mg of metoprolol IV, which have brought the heart rate down to the 170s, but also brought down the blood pressure to 90 systolic. Patient was then given 250 mcg of digoxin, with some improvement. EKG showed atrial fibrillation with a RVR rate of 184. After this course of care regards to comfort was held with the patient and family. Patient seen and care discussed with my senior resident, Dr. Bergman, and my attending physician, Dr. Georgie Carroll, PGY-1
--- NOTE | 2024-04-04 16:08 | ESDS_ITS ---
<Statement entered by Norberto Jacques MD - 04/19/24 09:37> I reviewed above note and agree with findings and plans. I have also personally examined the patient with medicine team and went over assessment and plan with medical team including internal salesperson and resident physician. <Statement entered by Nohemi Bergman MD - 04/04/24 17:26> Patient was seen and examined at bedside. He is stage IV pancreatic cancer. Extensive discussion with the patient and his family members on goals of care patient elected to go for home with hospice. - Patient's plan and care discussed with my attending, Dr. Georgie Bergman MD Internal Medicine PGY-2 Planned Discharge Date 04/04/24 DS: Providers Provider Date of admission: 04/03/24 12:10 Primary care physician: Tete Gallardo MD Admitting Provider: Norberto Jacques MD Attending Provider on Admission: Norberto Jacques MD Consults: 04/03/24 15:09 Health Equity Referral - Knowledge Deficit Routine Comment: Positive screening for knowledge deficit needs. 04/03/24 15:19 Health Equity Referral - Knowledge Deficit Routine Comment: Positive screening for knowledge deficit needs. 04/04/24 10:09 Consult to Oncology Routine Comment: Consulting Provider: Adilson Macias 04/04/24 14:32 Referral Hospice Routine Comment: Attending Provider on DC: Milan Carroll MD Discharging Provider: Milan Carroll MD DS: Diagnosis Problem List Completed Was Problem List Reviewed/Reconciled?: Yes Hospital Course Hospital Course Hospital course: 68-year-old male with a past medical history of hypertension and recently diagnosed pancreatic adenocarcinoma who was admitted on 04/03/2024 for failure to thrive 2/2 pancreatic adenocarcinoma stage 4 w/ liver mets. Patient had presented to the ED for poor oral intake, recurrent nausea, vomiting, abdominal pain, and back pain. Patient was in ED tachycardic with a rate of 101, blood pressure of 143/82. Pt was worked up and was found to have a sodium of 131, potassium 2.6, white count of 11.8, AST ALT 185 and 230 respectively, and BUN/creatinine [address] abdomen showed no change in carcinoma of pancreas. Patient was given Dilaudid 1 mg x 2, and was given potassium 20 mill equivalents. Medicine was consulted and patient was brought to the floor. While on the floors, patient was put on morphine 6 mg every 4 as needed, and 1.5 mg of Dilaudid every 6 as needed for breakthrough pains, focused on pain control similar to his outpatient pain regimen. Patient continued to use Dilaudid and morphine with slight reduction in pain. Rapid had been called on patient on 04/04/24 for evaluation of tachycardia with rates in the 200s, irregular rhythm, was given metoprolol 5mg and digoxin 0. 25mg and EKG showed A-fib with RVR rate of 184 and this management showed some improvement. Comfort care and hospice care discussion was held shortly thereafter with Dr. Macias, oncologist, and internal medicine team. Patient and patient's family signed POLST form to continue with hospice and comfort care after discussing life expectancy for patient and patient and patient's family had preference to be home throughout all of this. Hospice arrangements were made for patient and patient was then discharged. #Hospice care #Comfort care #Failure to thrive #Stage IV pancreatic adenocarcinoma with liver mets #Intractable pain secondary to above #Intractable nausea and vomiting secondary to above #Hypokalemia secondary to #GI losses #Opioid-induced constipation #History of hypertension #Tachycardia Patient seen and care discussed with my senior resident, Dr. Bergman , and my attending physician, Dr. Georgie Carroll, PGY-1 Time Spent with Patient Time attestation: Total time spent providing and/or coordinating discharge services: Time spent: Greater than 30 minutes Exam Vital Signs Temp Pulse Resp BP Pulse Ox O2 Del Method O2 Flow Rate 97.2 F 59 L 20 98/70 95 Nasal Cannula 4 04/04/24 12:00 04/04/24 15:07 04/04/24 15:07 04/04/24 13:17 04/04/24 15:07 04/04/24 12:00 04/04/24 15:07 Narrative Exam General: AAOx3, in mild distress HEENT: Moist mucous membranes, conjunctiva clear, EOMI, PERRLA, Cardiovascular: S1, S2, radial pulses +2 bilat, RRR Pulmonary: CTAB bilat no cough, no wheezing GI: Abdomen distended, slight tenderness to palpation Extremities: No presence of trace or pitting edema in lower extremities bilaterally, dorsalis pedis pulses +2 bilaterally Back: Some tenderness upon palpitation in mid thoracic spine, some presence of skin changes Neuro: AAOx3, limited exam as pt is experiencing some pain Psych: Good judgement, thought and behavior. Cooperative Discharge Plan Plan Patient Disposition: Home w/HOSPICE Disposition Comment: Stable for admit Care Plan Goals: Thorough discussion was conducted with the patient, He decided to go home with hospice and comfort measures. Prescriptions/Referrals Prescriptions/Med Rec: Changed morphine 20 mg/5 mL (4 mg/mL) solution 10 mg PO Q4H MDD 50mg PRN (Reason: severe pain) Qty: 500 0RF Discontinued sennosides-docusate sodium [Senna with Docusate Sodium] 8.6-50 mg tablet 1 tab-cap PO QDAY PRN (Reason: constipation) Qty: 20 0RF dronabinol 2.5 mg capsule 2.5 mg PO BID PRN (Reason: nausea and vomiting/ appetite stimulant) Qty: 60 0RF Rx Instructions: administer before lunch and evening meal/dinner peg 3350-electrolytes [GaviLyte-G] 236-22.74-6.74 -5.86 gram recon soln 240 ml PO Q10M Qty: 4000 0RF Rx Instructions: until fecal effluent is clear lisinopril 20 mg tablet 20 mg PO QDAY Patient Comments: TAKE 1 TABLET BY MOUTH EVERY DAY Referrals: Tete Gallardo MD [Primary Care Provider] - Patient/Caregiver Discharge Instructions Education Materials: Abdominal Pain, Communicating About Pain Print Language: Thai Stand Alone Forms: Brenda Award Info., Patient Portal Info Letter Discharge Order Discharge Orders: Discharge (Routine); Ordered 04/04/24 Ordered By: Nohemi Bergman Quality Discharge Quality Measures VTE prophylaxis (Lovenox)
--- NOTE | 2024-04-04 16:15 | PC.NURSE ---
Received notice from [facility] that transport is anticipated for 190
--- NOTE | 2024-04-04 16:32 | PC.SS ---
met with pt and both nephews, Russell Bee and Akin Mason who are requesting [facility]. provided them with The Community Resource List with Hospices choices and Hospice Brochures ([facility], [facility], [facility], [facility], and [facility]). Patient's choice is [facility]. NephewRussell has contacted [facility]. has called Yanni Yu from [facility] and they have accepted pt. has faxed hospice order to [facility]. has setup transportation with [facility] [phone]. has requested [facility]. has sent patient's facesheet and ambulance form to [facility] using [employer]. Ref# [id number]. Yanni from [facility] has confirmed DME will be delivered to patient's home by 6pm and O2 will be delivered at bedside. Bedside nurse, Lilly is aware. Bedside nurse, Tiffanie is aware. Nephhazel are aware.
--- NOTE | 2024-04-04 17:18 | PC.NURSE ---
Spoke with family regarding discharge transportation delay and was told by nephew that he had just spoken with someone from [facility] who told them that they would not be able to have the medications at their home tonight and would need to cancel discharge
--- NOTE | 2024-04-04 19:12 | PC.NURSE ---
received call from jean-paul mora from [facility], stating she had spoken to dispatcher and they had not received authorization for pt. fruit picker time had been set up at 1900 per nurse babin. will call ambulance to clarify issue, told jean-paul this nurse would call her back
--- NOTE | 2024-04-04 19:21 | PC.NURSE ---
received another call from [facility] jean-paul stating we could dc tomorrow since transportation might be delayed longer. nurse stated we were working on it and this nurse would call her back as soon as we got more information about transportation
--- NOTE | 2024-04-04 19:45 | PC.NURSE ---
Spoke with Yanni Roche from [facility] at who confirmed that there would be no medications available tonight. Charge nurse made aware.
[2024-04-05] VITALS (7 sets, daily range): BP systolic 98–129; BP diastolic 65–87; PULSE 73–117; RESP 16–88; TEMP 35.8–36.7; O2SAT 92–96
[2024-04-05] MEDS: MORPHINE SULF INJ 10 MG/ML VIAL 6 MG IVP ×2 (02:34→09:17)
[2024-04-05 05:22] LABS: Basophils % (Auto) 0 % (0-2.5); Eosinophils # (Auto) 0.1 Thou/mm3 (0.0-0.5); Eosinophils % (Auto) 1 % (0-10); Hematocrit 40.3 % (41.0-53.0); Hemoglobin 14.1 g/dL (13.5-16.0); Immature Granulocytes % (Auto) 4 % (0-0); Immature Granulocytes Auto 0.55 Thou/mm3 (0.00-0.00); Lymphocytes % (Auto) 7 % (10-50); Mean Corpuscular Hemoglobin 32.2 pg (25.0-35.0); Mean Corpuscular Volume 92 fL (80-100); Monocytes # (Auto) 0.3 Thou/mm3 (0.0-0.8); Monocytes % (Auto) 2 % (0-12); Neutrophils # (Auto) 12.7 Thou/mm3 (1.8-7.7); Neutrophils % (Auto) 87 % (37-80); Nucleated Red Blood Cell # 0.02 Thou/mm3 (0.00-0.00); Nucleated Red Blood Cell % 0 /100 WBC (0); Platelet Count 218 Thou/mm3 (140-440); RDW Standard Deviation 48.9 fL (35.1-43.9); Red Blood Count 4.38 Miln/mm3 (4.50-5.90); White Blood Count 14.6 Thou/mm3 (3.8-10.6)
[2024-04-05 06:21] LABS: Alanine Aminotransferase 115 U/L (10-49); Albumin, Serum 3.2 gm/dL (3.4-4.8); Albumin/Globulin Ratio 0.9 (1.2-2.2); Alkaline Phosphatase 104 U/L (46-116); Anion Gap 12 (7-16); Aspartate Amino Transferase 119 U/L (0-34); BUN/Creatinine Ratio 27 Ratio (12-20); Bilirubin,Total 3.5 mg/dL (0.3-1.2); Blood Urea Nitrogen 35 mg/dL (9-23); Calcium 9.3 mg/dL (8.3-10.6); Calcium (Corrected) 9.9 mg/dL (8.5-10.1); Carbon Dioxide 22.2 mMol/L (20.0-31.0); Chloride 95 mMol/L (98-107); Creatinine (Component) 1.3 mg/dL (0.6-1.3); Estimated Creatinine Clearance 57.7 mL/min (>60); Globulin 3.4 gm/dL (2.3-3.5); Glucose 150 mg/dL (74-106); Magnesium 3.4 mg/dL (1.6-2.6); Osmolality,Calculated 269 (275-295); Potassium 4.7 mMol/L (3.4-5.1); Sodium 129 mMol/L (136-145); Total Protein 6.6 gm/dL (5.7-8.2); eGFR > 60 See Note
[2024-04-05] MEDS: NALOXEGOL OXALATE 25 MG TABLET (NON-FORMULARY) PO (06:29)
[2024-04-05] MEDS: LACTULOSE SYRUP 20 GM/30 ML UDC 10 GM PO (09:17)
[2024-04-05] MEDS: PANTOPRAZOLE INJ 40 MG VIAL IVP (09:17)
--- NOTE | 2024-04-05 09:25 | PC.SS ---
Addendum entered by Lorena Lewis 04/05/24 10:46: SS has spoken to [facility] and requested [facility]. Bedside nurse, Lilly explained yesterday was different transport company not [facility]. Addendum entered by Lorena Lewis 04/05/24 09:56: New ref# is: [id number]. SS has rescheduled transportation for 2pm with [facility] and provided Serena from dispatch with new ref#. Patient's nephew, Russell phone# [phone] is aware. Yanni from [facility] is aware. Original Note: SS has spoken to Yanni Wright from [facility] who is aware pt is still hospitalized due to [facility] not having his medications available. SS called and spoke to Oscar from [facility] and cancelled yesterday's transportation ref# [id number]. SS has rescheduled transportation with [facility] for 2pm. Yanni Yu from [facility] is aware of transport time and his medications are ready.
[2024-04-05] MEDS: HYDROmorphone INJ 2 MG/ML VIAL 1.5 MG IVP (12:21)
--- NOTE | 2024-04-05 12:21 | PC.SS ---
Addendum entered by Lorena Lewis 04/05/24 13:28: SS spoke to Soheila from [facility] who explained they have contacted [facility] and transport time is 2:30. Yanni Yu from [facility] is aware. SS has also sent IDRIS form incase [facility] did not contact [facility]. Lencho is aware. SS has called Dayna from [facility] who has confirmed transportation time is 2:30. Original Note: SS was informed by Augusto GAVIN he received call from [employer] explaining transportation is set for tomorrow 04/06/24. SS called [facility] and spoke to Александр and informed him pt is d/c today and transportation is for today not tomorrow. also provided Александр with [facility]'s phone number for transportation. New reference# is [id number].
== END 2024-04-05 14:34 | disposition hospice, home (50) ==
LOC: SERX 11:15 → S3SX 04-04 07:06 → SERHOLD 04-04 10:51
PROVIDERS: Admitting Provider Internal Medicine; Emergency Provider Emergency Medicine; PCP Family Medicine; Visit Provider Internal Medicine
DX: G89.3 Neoplasm related pain (acute) (chronic) (principal); R11.2 Nausea with vomiting, unspecified; C25.0 Malignant neoplasm of head of pancreas; C78.7 Secondary malignant neoplasm of liver and intrahepatic bile duct; T40.2X5A Adverse effect of other opioids, initial encounter; R62.7 Adult failure to thrive; M81.0 Age-related osteoporosis without current pathological fracture; M19.90 Unspecified osteoarthritis, unspecified site; K59.03 Drug induced constipation; J45.909 Unspecified asthma, uncomplicated; E87.6 Hypokalemia; I10 Essential (primary) hypertension; I48.91 Unspecified atrial fibrillation; Z87.891 Personal history of nicotine dependence; R00.0 Tachycardia, unspecified; Z68.26 Body mass index [BMI] 26.0-26.9, adult
CPT/HCPCS: 36415; 74177; 80053; 80069; 81001; 83690; 83735; 84100; 84484; 85025; 85610; 85730; 87081; 93005; 96361; 96365; 96366; 96367; 96372; 96375; 96376; 99285; A4649; G0378; J1160; J1650; J2270; J2405; J2470; J3475; J3480; J3490; J7030; Q9967; A9270